=== PATIENT | female | born 1960 | race Caucasian/White ===

== ENCOUNTER 2018-01-12 13:29 | Outpatient (REF) | payer OTHER, SELFPAY ==
--- NOTE | 2018-01-12 12:10 | PAPFT_PTH ---
PATIENT: Annie Bush LOC: [facility] U#:[id number] AGE/SX: 57/F ROOM: RE01/12/[address]: YAQUELIN Casas : 1960 BED: DIS: 01/12/2018 SPEC #: [id number] RECD: 01/16/18 12:58 STATUS: TANISHA PERRY #: [id number] PAT: 01/12/18 12:[address]: Lashon Noguera DEPT: [facility] Cytology RECD BY: Sapna Snyder Tissues: 1 - CX/ENDOCX FOR PAP SMEARS Procedures: PAP THIN PREP/UVM Screening HPV DNA PROBE Comments: [id number]
== END 2018-01-12 13:30 ==
LOC: LBN 13:29
PROVIDERS: PCP Nurse Practitioner Family; Visit Provider Nurse Practitioner Family
DX: Z12.4 Encounter for screening for malignant neoplasm of cervix (principal); Z11.51 Encounter for screening for human papillomavirus (HPV)
CPT/HCPCS: 88142; 87624

== ENCOUNTER 2018-03-26 06:17 | Day surgery (SDC) | payer OTHER, SELFPAY ==
[2018-03-26 06:33] VITALS: BP 106/70; PULSE 71; RESP 16; TEMP 36.8; O2SAT 98
[2018-03-26] MEDS: Lactated Ringers 1,000 ML 80 ML IV (06:44)
--- NOTE | 2018-03-26 06:44 | W.COLOREPORT ---
Date of service: 03/26/18 Time of Service: 07:30 Colonoscopy Report Date of procedure: 03/26/18 Pre-op diagnosis general: Colon Cancer Screening Post-op diagnosis procedure note: other (Adenomatous polyps) Procedure: Colonoscopy with polypectomy by cold forceps Surgeon: Crys Jessica Anesthesia proc note operative: MAC (Dusty Turner CRNA) Estimated blood loss (mL): 3 Pathology: other (Transverse polyp and descending polyp) Complications: None Disposition: same day Indications: Mrs. Bush was seen in the office for a screening colonoscopy. Risks, benefits and complications were reviewed with her and she wished to proceed. No guarantees were given or implied. Prep: Miralax/Dulcolax Procedure Start Time: 07:27 Procedure End Time: 07:53 Retraction Time: 17 Findings: 2 polyps identified. Both were sessile. One in the transverse colon and one in the descending colon. Procedure Description: After informed consent was obtained the patient was taken to the procedure room and placed in a left decubitous position. Monitors were applied and a time out was done. The patients name, date of , procedure, allergies to medications and metal in their body was reviewed. The patient was then sedated. Once sedated and comfortable a rectal exam was done. External exam was normal. Internal exam revealed a normal sphincter tone and no palpable masses. The scope was then introduced and retroflexed. No internal hemorrhoids were identified. The scope was then advanced to the cecum without difficulty. The TI and appendiceal orifice were identified. The prep was adequate. The scope was then slowly retracted over 17 minutes back into the rectum. The scope was removed and the patient was woken up and taken back to Same day surgery in stable condition. The patient tolerated the procedure well and there were no immediate complications. Follow up: The patient should follow up in 3-5 years depending on final pathology results, unless they develop changes in bowel habits or other new gastrointestinal complaints.
--- NOTE | 2018-03-26 06:48 | PDOC.DSDIS_ITS ---
Discharge Plan Disposition Patient Disposition: HOME Condition: Good Discharge Details Reason For Visit: Screening Colonoscopy Attending Provider: Crys Jessica Primary Care Provider: Lashon Noguera Home Meds and New Rx's Prescriptions: Discontinued bisacodyl [Dulcolax (bisacodyl)] 5 mg tablet,delayed release (DR/EC) 5 mg PO ONCE Qty: 4 RF: 0 polyethylene glycol 3350 17 gram powder in packet 255 g PO DAILY Qty: 15 RF: 0 Discharge Instructions Instructions: Colonoscopy (DC) Additional Instructions: Findings: 2 polyps Follow up: 3-5 years New Medications: none Please call if you develop: fevers >101.5 Nausea or Vomiting Abdominal pain that is not transient 1. Because there will be medication in your system for the next 24 hours, you may feel a little sleepy. Your coordination will be affected. Therefore: a. Do not drive or operate dangerous equipment for 24 hours. b. Do not drink alcohol beverages for 24 hours (not even beer). c. Plan to go home and rest for the day. 2. Generally there are no restrictions on your activity after a day or so has gone by, but you may feel a bit fatigued for a few days. 3 After you arrive home you may have a light meal and return to a normal diet as you can tolerate it without feeling sick to your stomach. 4. After surgery, you may feel pain or discomfort. This should be only transient , but if it persists please contact your doctor. 5. If there are any questions regarding the findings of your procedure, please feel free to contact your doctor. 6. If you are unable to contact your doctor with a problem, contact the hospital at [phone]. 7. Continue all your regular medications unless directed otherwise. I understand the above instructions and have no questions. Signature of Patient or Responsible Adult Escort Date/Time Name of Responsible Adult Escort Signature of Nurse Date/Time Activity:: Activity as Tolerated Diet:: As Tolerated Discharge Orders Discharge Orders: Discharge Order (Routine); Ordered 03/26/18 Ordered By: Crys Jessica DS: Diagnosis Discharge Diagnosis (1) Colon polyps: Status: Acute (2) S/P colonoscopy with polypectomy: Status: Acute
--- NOTE | 2018-03-26 07:11 | W.PM.HP.N ---
Date of service: 03/26/18 Time of Service: 07:10 Assessment and Plan (1) Encounter for screening colonoscopy: Current visit: Yes Status: Acute P\\ Colonoscopy under sedation Risks, benefits and complications have been reviewed. Complications include but are not limited to bleeding, pain, perforation, missed small lesion/polyp, sore throat, aspiration and adverse reaction to the medications. Questions were entertained and answered to their satisfaction and they wished to proceed. No guarantees were given or implied. Mrs. Bush is a pleasant 57 year old female who is here to discuss her first Colonoscopy. She denies any melena, hematochezia, abdominal pain or unintentional weight loss. She has had some constipation in the last 6 months. She has treated this with increased water intake and increased fiber in her diet. She has no family history of colon cancer that she is aware of. There have been no changes in her health since she was seen in the office. Review of Systems Cardiovascular Denies chest pain, Denies chest pain at rest, Denies chest pain with activity and Denies dyspnea Respiratory Denies cough, Denies pain with cough and Denies dyspnea Gastrointestinal Reports as per [facility] Family History Mother Fibromyalgia Heart disease Hyperlipidemia Myocardial infarction Father Heart disease Lung cancer Sister Heart disease Myocardial infarction Breast cancer Paternal History Breast cancer Son No problems noted. Daughter Substance abuse Daughter No problems noted. Sister No problems noted. Brother Essential hypertension Grandfather No problems noted. Grandfather Alzheimer disease Grandmother No problems noted. Grandmother No problems noted. Medical History Premenstrual syndrome (Acute 08/29/11) Hyperlipidemia (Acute 01/03/18) Family hx-breast malignancy (Acute 10/12/12) Anovulatory bleeding (Acute 05/26/15) Hyperlipidemia Social History household members: spouse marital status: diet: other Smoking/Tobacco Use Status: Never alcohol intake: current alcohol intake frequency: a few times a month substance use type: does not use Surgical History Ligation of fallopian tube (~1999) Meds Home Medications Medication Instructions Recorded Confirmed Type bisacodyl 5 mg tablet,delayed 5 mg PO ONCE #4 tab 02/16/18 03/26/18 Rx release polyethylene glycol 3350 17 gram 255 g PO DAILY #15 each 02/16/18 03/26/18 Rx oral powder packet Allergies Allergy/AdvReac Type Severity Reaction Status Date / Time penicillin V potassium AdvReac Intermediate yeast Unverified 03/26/18 06:31 [From SylvesterAdriane Fernandez] infection Exam Const General: healthy appearing and no acute distress Resp Effort & Inspection: normal respiratory effort Auscultation: clear to auscultation bilaterally Cardio Rate: regular rate Rhythm: regular rhythm Heart Sounds: no gallops, no murmurs and no rubs Results Last Vital Signs Temp 98.2 F 03/26/18 06:33 Pulse 71 03/26/18 06:33 Resp 16 03/26/18 06:33 BP 106/70 03/26/18 06:33 Pulse Ox 98 03/26/18 06:33
--- NOTE | 2018-03-26 07:42 | BOWEL_PTH ---
PATIENT: Annie Bush LOC: [facility] U#:[id number] AGE/SX: 57/F ROOM: RE03/26/[address]: Crys Jessica MD : 1960 BED: DIS: 03/26/2018 SPEC #: [id number] RECD: 03/26/18 12:34 STATUS: TANISHA REQ #: [id number] PAT: 03/26/18 07:[address]: Crys Jessica DEPT: Surgical Specimen RECD BY: Sapna Snyder ENTERED: 03/26/18 12:35 SP TYPE: Bowel OTHR DR: YAQUELIN Casas Tissues: 1 - BIOPSY BOWEL 2 - BIOPSY BOWEL Procedures: GROSS AND MICRO LEVEL 4 Comments: [id number]
[2018-03-26 08:31] VITALS: BP 103/59; PULSE 56; RESP 16; TEMP 36.5; O2SAT 99
[2018-03-26 08:38] VITALS: BP 108/64; PULSE 50; RESP 14; TEMP 36.5; O2SAT 100
== END 2018-03-26 08:55 | disposition home or self-care (01) ==
PROVIDERS: PCP Nurse Practitioner Family; Visit Provider Surgery
PROC: 0DJD8ZZ Inspection of Lower Intestinal Tract, Via Natural or Artificial Opening Endoscopic (ICD-10-PCS; CPT 45378; principal; 2018-03-26 07:30)
DX: Z12.11 Encounter for screening for malignant neoplasm of colon (principal); D12.3 Benign neoplasm of transverse colon; D12.4 Benign neoplasm of descending colon
CPT/HCPCS: 45380; 88305; NC

== ENCOUNTER 2018-06-23 10:19 | Emergency (ER) | payer OTHER, SELFPAY ==
[2018-06-23] VITALS (19 sets, daily range): BP systolic 100–115; BP diastolic 48–66; PULSE 53–73; RESP 11–33; TEMP 36.6; O2SAT 92–100
[2018-06-23] MEDS: Normal Saline 1,000 ML 1000 ML IV (10:45)
[2018-06-23 10:54] LABS: Abs Immature Grans 0.01 k/cumm (0.0-0.09); Absolute Basophil Count 0.04 k/cumm (0.0-0.2); Absolute Eosinophil Count 0.08 k/cumm (0.0-0.7); Absolute Neutrophil Count 4.06 k/cumm (1.2-6.7); Basophils % 0.6; Eosinophils % 1.3; HGB 13.9 g/dL (12.0-15.5); Immature Grans % 0.2; Lymphocytes % 25.4; Mean Corp. HGB Concentration 33.1 g/dL (32.0-36.0); Mean Corpuscular Hemoglobin 30.9 pg (27.0-33.0); Mean Corpuscular Volume 93.3 fL (80-95); Mean Platelet Volume 10.4 fL (8.0-11.0); Monocytes % 7.9; Neutrophils % 64.6; Platelet Count 267 x1000/uL (130-400); RBC Distribution Width 12.6 % (11.7-14.6); White Blood Cell Count 6.29 k/cumm (4.4-10.8)
[2018-06-23 11:09] LABS: ALT 16 U/L (12-78); AST 17 U/L (15-37); Albumin 3.6 g/dL (3.4-5.0); Alkaline Phosphatase 58 U/L (46-116); Anion Gap 10.3 mmol/L (3-11); BUN 18 mg/dL (7-18); Bilirubin, Total 0.2 mg/dL (0.2-1.0); CO2 26.7 mmol/L (21.0-32.0); Calcium 8.5 mg/dL (8.5-10.1); Chloride 105 mmol/L (98-107); Glucose 106 mg/dL (70-100); Magnesium 1.8 mg/dL (1.8-2.4); Sodium 142 mmol/L (136-145); Total Protein 6.9 g/dL (6.4-8.2); Troponin I < 0.02 ng/mL (0.00-0.06)
[2018-06-23 11:16] LABS: ETHANOL BLOOD < 3.0 mg/dL (<3)
[2018-06-23] MEDS: Meclizine 25 MG TAB PO (11:30)
--- NOTE | 2018-06-23 11:35 | ED.GENADUL_ITS ---
Discharge Plan Disposition Patient Disposition: HOME Condition: Improving Discharge Details Chief Complaint: Nausea/Vomit/Diar Clinical Impression: Benign positional vertigo Reason For Visit: ROSANA Primary Care Provider: Lashon Noguera ED Provider: Cameron Mccann Home Meds and New Rx's Prescriptions: New meclizine 25 mg tablet 25 mg PO TID PRN (Reason: dizziness) Qty: 30 RF: 0 Discharge Instructions Instructions: Vertigo (ED), Benign Paroxysmal Positional Vertigo (ED) Additional Instructions: Please stay well-hydrated and take medication as prescribed. Please go slowly with position changes as this may worsen your symptoms. Return to emergency department for any further concerns she may have otherwise if not improving over the next week please follow-up with your primary care provider for reassessment. Stand Alone Forms: Physical Therapy Referral Referrals: Lashon Noguera NP [Primary Care Provider] - Discharge Data Discharge Date/Time-TO BE ENTERED AT DEPARTURE: 06/23/18 13:22 Medical Decision Making <Cameron Mccann NP - Last Filed: 06/24/18 08:13> Patient presenting to the emergency department with chief complaint of not feeling well, dizziness, nausea. Patient states that this started occurring this morning when she rolled over in bed she began feeling ill Hints exam positive for horizontal nystagmus to the right, test of skew nondiagnostic, head impulse test positive for return to center from right otherwise unremarkable exam. Tommy-Hallpike also positive for right gaze nystagmus. Suspect benign positional vertigo. Patient does state recent cold with feeling of congestion in her ears. Patient also reports some dizziness that did begin yesterday evening but was very mild. Labs and EKG ordered pending results patient given diazepam, IV fluids Patient reassessed and states minimal improvement with diazepam so Phenergan and meclizine were ordered Review of results show negative troponin, normal electrolytes, nondiagnostic labs. Patient reassessed and states improvement of symptoms. Patient was able to ambulate to the restroom for urinalysis and states significant improvement of overall symptoms. She does state still some positional change causing mild dizziness especially to the right. Patient ambulatory without assistance and states began feeling much better even with ambulation. UA was reviewed and no worrisome findings noted. Patient was given a referral to physical therapy for education and attempt at Ameena's maneuver otherwise patient prescribed meclizine for continued symptoms and she was encouraged to return for any further concerns or emergent change it was thoroughly discussed with her and her . After discussion of diagnosis and plan of care patient is no further needs, questions, or concerns and states clear understanding to return to the emergency department for any worsening symptoms. <Carlos Snyder DO - Last Filed: 06/23/18 11:37> ECG Data Interpretation: EKG 10: 52 Rate 57, IL 146, QTc 454, QRS 88, sinus bradycardia, no significant ST elevations or depressions, no T wave inversions. Mild flattening of T wave in lead III. Questionable Q waves in lead III. No other significant abnormalities. HPI <Cameron Mccann NP - Last Filed: 06/24/18 08:13> General Mode of arrival: EMS . Date/Time Provider Initiated Documentation: 06/23/18 10:37 . Limitations to Documentation: no limitations . Information obtained by: patient, family and RN notes reviewed . History of Present Illness 58 year old F presents to the emergency department with the chief complaint of dizziness not feeling well, described as moderate, Quality is described as other (denies pain), and is localized to the head. Patient started experiencing this hour(s) (2) and it has been constant. No relieving factors improve symptom(s), Movement worsens symptoms . Patient did receive the following treatments prior to arrival, other (zofran per ems) Related Data Home Medications Medication Instructions Recorded Confirmed meclizine 25 mg PO TID PRN #30 tab 06/23/18 Previous Rx's Medication Instructions Recorded meclizine 25 mg PO TID PRN #30 tab 06/23/18 Allergies Allergy/AdvReac Type Severity Reaction Status Date / Time penicillin V potassium AdvReac Intermediate yeast Unverified 06/23/18 10:36 [From Alan Fernandez] infection General Stated Complaint: Nausea/Vomit/Diar MARLEE: 3 Review of Systems <Cameron Mccann NP - Last Filed: 06/24/18 08:13> Constitutional Denies body ache(s), Denies chills, Denies fever(s) and Denies headache(s) Eyes Denies change in vision and Denies loss of vision ENT Reports dizziness and Denies headache(s) Cardiovascular Denies chest pain and Denies syncope Respiratory Denies cough Gastrointestinal Denies abdominal pain, Reports nausea and Reports vomiting Neurologic Reports as per HPI, Reports dizziness, Denies syncope, Denies headache(s), Denies lack of coordination, Denies focal weakness, Denies loss of vision, Denies sensory deficit and Denies paresthesias PFSH <Cameron Mccann NP - Last Filed: 06/24/18 08:13> Medical History Premenstrual syndrome (Acute 08/29/11) Hyperlipidemia (Acute 01/03/18) Family hx-breast malignancy (Acute 10/12/12) Anovulatory bleeding (Acute 05/26/15) Hyperlipidemia Surgical History Colonoscopy planned (Acute ~03/26/18) Ligation of fallopian tube (~1999) Family History Mother Fibromyalgia Heart disease Hyperlipidemia Myocardial infarction Father Heart disease Lung cancer Sister Heart disease Myocardial infarction Breast cancer Paternal History Breast cancer Son No problems noted. Daughter Substance abuse Daughter No problems noted. Sister No problems noted. Brother Essential hypertension Grandfather No problems noted. Grandfather Alzheimer disease Grandmother No problems noted. Grandmother No problems noted. Social History household members: spouse diet: other Smoking and Tabacco status: Never alcohol intake: current alcohol intake frequency: a few times a month substance use type: does not use Exam <Cameron Mccann NP - Last Filed: 06/24/18 08:13> Const General: cooperative, healthy appearing, no acute distress and well groomed Orientation: alert, awake and oriented x3 HENMT Head: normal to inspection Ears: hearing grossly normal bilaterally and TM's normal bilaterally Mouth: oral mucosae normal and moist mucous membranes Throat: posterior oropharynx normal Eyes Visual Lundberg: normal visual lundberg by confrontation Alignment and Position: alignment normal Periorbital: periorbital findings normal Eyelids: eyelids normal Sclera: sclerae normal Cornea: corneas normal Pupils: PERRL EOM: EOM intact bilaterally Neck Neck: normal visual inspection, full ROM, no lymphadenopathy and no meningeal signs Resp Effort & Inspection: normal respiratory effort and able to speak in complete sentences Auscultation: clear to auscultation bilaterally Cardio Rate: regular rate Rhythm: regular rhythm Heart Sounds: S1 normal and S2 normal Neuro General: alert, awake, oriented x3, gait normal, tone normal, moves all extremities, no meningeal signs, CN's II-XI intact bilaterally, not confused and not obtunded Cranial Nerves: CN's II-XI intact bilaterally Cognition: normal cognition Speech: speech normal Motor: muscle tone normal throughout, strength 5/5 throughout, no pronator drift, no movement abnormalities noted and no fasciculations Sensory Exam: no sensory deficits noted Coordination: [id number] test normal and ypzq-[id number] test normal Course <Cameron Mccann, WELDING MACHINE OPERATOR THERMIT - Last Filed: 06/24/18 08:13> Vital Signs Temperature 36.6 C 06/23/18 10:26 Pulse 68 06/23/18 10:26 Respiratory Rate 20 06/23/18 10:26 Blood Pressure 108/62 06/23/18 10:26 Pulse Oximetry 100 06/23/18 10:26 Temperature 36.6 C 06/23/18 10:26 Temperature Source Skin 06/23/18 10:26 Pulse 68 06/23/18 10:26 Respiratory Rate 20 06/23/18 10:26 Respiratory Effort Non-Labored 06/23/18 10:26 Blood Pressure 108/62 06/23/18 10:26 Blood Pressure Position Supine 06/23/18 10:26 Pulse Oximetry 100 06/23/18 10:26 Pain Level 0 06/23/18 10:26 Lab/Test Results Lab/Test Results: Laboratory Tests Range/Units 06/23/18 06/23/18 10:45 10:45 WBC (4.4-10.8) k/cumm 6.29 RBC (4.00-5.20) m/cumm 4.50 Hgb (12.0-15.5) g/dL 13.9 Hct (36.0-46.0) % 42.0 MCV (80-95) fL 93.3 MCH (27.0-33.0) pg 30.9 MCHC (32.0-36.0) g/dL 33.1 RDW (11.7-14.6) % 12.6 Plt Count (130-400) x1000/uL 267 MPV (8.0-11.0) fL 10.4 Immature Gran % 0.2 Neutrophils % 64.6 Lymphocytes % 25.4 Monocytes % 7.9 Eosinophils % 1.3 Basophils % 0.6 Absolute Neutrophils (1.2-6.7) k/cumm 4.06 Absolute Lymphocytes (1.2-3.4) k/cumm 1.60 Absolute Monocytes (0.11-0.7) k/cumm 0.50 Absolute Eosinophils (0.0-0.7) k/cumm 0.08 Absolute Basophils (0.0-0.2) k/cumm 0.04 Sodium (136-145) mmol/L 142 Potassium (3.5-5.1) mmol/L 4.0 Chloride (98-107) mmol/L 105 Carbon Dioxide (21.0-32.0) mmol/L 26.7 Anion Gap (3-11) mmol/L 10.3 BUN (7-18) mg/dL 18 Creatinine (0.55-1.02) mg/dL 0.80 Estimated GFR/1.73 m2 (mL/min/1.73m2) >= 60.00 Glucose (70-100) mg/dL 106 H Calcium (8.5-10.1) mg/dL 8.5 Magnesium (1.8-2.4) mg/dL 1.8 Total Bilirubin (0.2-1.0) mg/dL 0.2 AST (15-37) U/L 17 ALT (12-78) U/L 16 Alkaline Phosphatase (46-116) U/L 58 Troponin I (0.00-0.06) ng/mL < 0.02 Total Protein (6.4-8.2) g/dL 6.9 Albumin (3.4-5.0) g/dL 3.6 Ethyl Alcohol (<3) mg/dL < 3.0
[2018-06-23 12:50] LABS: Bilirubin Negative (Negative); Blood Negative (Negative); Clarity Clear; Glucose Negative (Negative); Ketones Negative (Negative); Leukocyte Esterase Negative (Negative); Nitrite Negative (Negative); Specific Gravity 1.015 (1.005-1.025); Urobilinogen 0.2 EU/dL (Up TO 0.2); pH 8.5 (5-8)
== END 2018-06-23 13:22 | disposition home or self-care (01) ==
PROVIDERS: Emergency Provider Nurse Practitioner Family; PCP Nurse Practitioner Family
DX: H81.10 Benign paroxysmal vertigo, unspecified ear (principal)
CPT/HCPCS: 36415; 80053; 93005; 96361; 96365; 96375; 99284; 80320; 81003; 83735; 84484; 85025; 93010

== ENCOUNTER 2018-07-04 20:28 | Outpatient (REF) | payer OTHER, SELFPAY | END 2018-07-04 20:48 | LOC: LBN 20:28 | PROVIDERS: PCP Nurse Practitioner Family; Visit Provider Nurse Practitioner Family | DX: N76.0 Acute vaginitis (principal) | CPT/HCPCS: 87480; 87510; 87660 ==

== ENCOUNTER 2018-08-21 00:35 | Outpatient (CLI) | payer OTHER, SELFPAY ==
--- NOTE | 2018-08-21 10:27 | DI.US_ITS ---
SYMPTOMS/DIAGNOSIS: MENORRHAGIA, N92.0, EXCESSIVE AND FREQUENT MENSTRUATION WITH REGULAR CYCLE PELVIC ULTRASOUND: Transabdominal and transvaginal examination was performed. Comparison 04/28/15. The uterus measures 7.7 cm long x 4.8 cm AP x 5.9 cm transverse. There is a 3.1 x 2.1 x 2.3 cm slightly hypoechoic mass at right fundal region of the uterus suggestive of a fibroid. This was present on prior examinations. The endometrial stripe is within normal limits at .6 cm. The right ovary measures 2.6 x 1.4 x 3.7 cm. The left ovary measures 3.2 x 1.7 x 1.2 cm. Small follicular cysts were present. There is blood flow seen to the ovaries. No evidence of torsion is seen. No evidence of free pelvic fluid or hydronephrosis is present. IMPRESSION: Uterine fibroid.
== END 2018-08-21 00:55 ==
PROVIDERS: PCP Nurse Practitioner Family; Visit Provider Nurse Practitioner Family
DX: N92.0 Excessive and frequent menstruation with regular cycle (principal); D25.9 Leiomyoma of uterus, unspecified
CPT/HCPCS: 76830; 76856

== ENCOUNTER 2018-08-24 14:43 | Outpatient (REF) | payer OTHER, SELFPAY ==
--- NOTE | 2018-08-24 13:40 | ENDOMET_PTH ---
PATIENT: Annie Bush LOC: [facility] U#:[id number] AGE/SX: 58/F ROOM: RE08/24/[address]: Shannan Oneal : 1960 BED: DIS: 08/24/2018 SPEC #: [id number] RECD: 08/24/18 17:02 STATUS: TANISHA PERRY #: [id number] PAT: 08/24/18 13:[address]: Shannan Oneal DEPT: Surgical Specimen RECD BY: Sapna Snyder ENTERED: 08/24/18 17:04 SP TYPE: Endomet OTHR DR: YAQUELIN Casas Tissues: 1 - ENDOMETRIUM BX/CURRETTE Procedures: GROSS AND MICRO LEVEL 4 Comments: [id number]
== END 2018-08-24 15:03 ==
LOC: LBN 14:43
PROVIDERS: PCP Nurse Practitioner Family; Visit Provider Obstetrics & Gynecology Gynecology
DX: N85.8 Other specified noninflammatory disorders of uterus (principal); N93.8 Other specified abnormal uterine and vaginal bleeding
CPT/HCPCS: 88305

== ENCOUNTER 2018-09-04 02:28 | Outpatient (CLI) | payer OTHER, SELFPAY ==
[2018-09-04 15:32] LABS: FREE T4 0.72 ng/dL (0.76-1.46); TSH 2.34 uIU/mL (0.358-3.74)
== END 2018-09-04 02:48 ==
PROVIDERS: PCP Nurse Practitioner Family; Visit Provider Nurse Practitioner Family
DX: R06.83 Snoring (principal)
CPT/HCPCS: 36415; 84439; 84443

== ENCOUNTER 2018-10-05 00:36 | Outpatient (CLI) | payer OTHER, SELFPAY ==
--- NOTE | 2018-10-05 14:33 | DI.US_ITS ---
SYMPTOMS/DIAGNOSIS: HEAVY BLEEDING X 3 WEEKS, N93.9 PELVIC ULTRASOUND: Comparison is made with August,. The uterus measures 7.6 x 5.7 x 6.2 cm. The endometrial stripe measures 7 mm. There is again noted to be a fundal fibroid. On the current exam, it is measured at 3.7 cm in maximal dimension. The ovaries are normal in size and appearance. Small follicles are noted bilaterally. There is no evidence of torsion. No free fluid or hydronephrosis is seen. IMPRESSION: No significant change in small fundal fibroid. No endometrial thickening or ovarian abnormality is seen.
== END 2018-10-05 00:56 ==
PROVIDERS: PCP Nurse Practitioner Family; Visit Provider Obstetrics & Gynecology
DX: N93.9 Abnormal uterine and vaginal bleeding, unspecified (principal); D25.9 Leiomyoma of uterus, unspecified
CPT/HCPCS: 76830; 76856

== ENCOUNTER 2019-09-24 10:36 | Outpatient (CLI) | payer OTHER, SELFPAY ==
[2019-09-25 17:17] LABS: COVID-19 RT-PCR UVMMC Result Negative (Negative)
== END 2019-09-24 10:56 ==
PROVIDERS: PCP Nurse Practitioner Family; Visit Provider Nurse Practitioner Family
DX: R50.9 Fever, unspecified (principal)
CPT/HCPCS: U0003

== ENCOUNTER 2019-10-16 02:42 | Outpatient (CLI) | payer OTHER, SELFPAY ==
[2019-10-16 11:51] LABS: Absolute Basophil Count 0.03 k/cumm (0.0-0.2); Absolute Eosinophil Count 0.08 k/cumm (0.0-0.7); Absolute Lymphocyte Count 1.83 k/cumm (1.2-3.4); Absolute Monocyte Count 0.39 k/cumm (0.11-0.7); Absolute Neutrophil Count 2.96 k/cumm (1.2-6.7); Basophils % 0.6; Eosinophils % 1.5; HCT 42.3 % (36.0-46.0); HGB 13.6 g/dL (12.0-15.5); Lymphocytes % 34.6; Mean Corp. HGB Concentration 32.2 g/dL (32.0-36.0); Mean Corpuscular Hemoglobin 30.3 pg (27.0-33.0); Mean Corpuscular Volume 94.2 fL (80-95); Mean Platelet Volume 9.6 fL (8.0-11.0); Monocytes % 7.4; Neutrophils % 55.9; Platelet Count 342 x1000/uL (130-400); RBC 4.49 m/cumm (4.00-5.20); RBC Distribution Width 12.8 % (11.7-14.6); White Blood Cell Count 5.29 k/cumm (4.4-10.8)
[2019-10-16 12:40] LABS: ALT 24 U/L (14-59); AST 15 U/L (15-37); Albumin 3.9 g/dL (3.4-5.0); Alkaline Phosphatase 46 U/L (46-116); Anion Gap 4.3 mmol/L (3-11); BUN 13 mg/dL (7-18); Bilirubin, Total 0.5 mg/dL (0.2-1.0); CO2 30.7 mmol/L (21.0-32.0); CREATININE 0.88 mg/dL (0.55-1.02); Calcium 9.2 mg/dL (8.5-10.1); Chloride 105 mmol/L (98-107); Glucose 92 mg/dL (74-106); Potassium 4.3 mmol/L (3.5-5.1); Sodium 140 mmol/L (136-145); TSH 1.43 uIU/mL (0.36-3.74)
[2019-10-16 13:07] LABS: ESR 1 mm/hr (0-30)
== END 2019-10-16 03:02 ==
PROVIDERS: PCP Nurse Practitioner Family; Visit Provider Family Medicine
DX: R53.83 Other fatigue (principal); R50.9 Fever, unspecified
CPT/HCPCS: 36415; 80053; 85652; 84443; 85025

== ENCOUNTER 2020-02-12 02:58 | Outpatient (CLI) | payer OTHER, SELFPAY | END 2020-02-12 03:18 | PROVIDERS: PCP Nurse Practitioner Family; Visit Provider Family Medicine | DX: R69 Illness, unspecified (principal) ==

== ENCOUNTER 2020-03-13 18:14 | Outpatient (REF) | payer OTHER, SELFPAY ==
[2020-03-13 19:24] LABS: Abs Immature Grans 0.02 10^3/uL (0.0-0.06); Absolute Basophil Count 0.06 10^3/uL (0.0-0.2); Absolute Eosinophil Count 0.11 10^3/uL (0.0-0.7); Absolute Lymphocyte Count 2.37 10^3/uL (1.2-3.4); Absolute Monocyte Count 0.47 10^3/uL (0.1-0.8); Absolute Neutrophil Count 2.92 10^3/uL (1.2-6.7); Eosinophils % 1.8; HCT 39.9 % (36.0-46.0); HGB 13.3 g/dL (11.2-15.7); Immature Grans % 0.3; Lymphocytes % 39.8; MCH 31.2 pg (27.0-33.0); MCHC 33.3 % (32.0-36.0); MCV 93.7 fL (80-95); MPV 10.7 fL (8.0-11.0); Monocytes % 7.9; Neutrophils % 49.2; Nucleated RBC 0 %; Platelet Count 326 10^3/uL (130-400); RBC 4.26 10^6/uL (3.93-5.22); RDW 12.2 % (11.7-14.6); RDW-SD 42.5 fL; WBC 5.95 10^3/uL (4.4-10.8)
[2020-03-13 19:42] LABS: Iron 91 ug/dL (50-170); Total Iron Binding Capacity 363 ug/dL (250-450); Transferrin Sat 25 % (15-50)
[2020-03-13 19:51] LABS: ALT 18 U/L (14-59); AST 13 U/L (15-37); Albumin 3.8 g/dL (3.4-5.0); Alkaline Phosphatase 44 U/L (46-116); Anion Gap 6.8 mmol/L (3-11); BUN 18 mg/dL (7-18); Bilirubin, Total 0.3 mg/dL (0.2-1.0); C-Reactive Protein 0.08 mg/dL (0.0-0.3); CO2 26.2 mmol/L (21.0-32.0); CREATININE 0.94 mg/dL (0.55-1.02); Calcium 8.9 mg/dL (8.5-10.1); Chloride 106 mmol/L (98-107); Creatine Kinase 98 U/L (26-192); Glucose 97 mg/dL (74-106); Potassium 4.1 mmol/L (3.5-5.1); Sodium 139 mmol/L (136-145); TSH 1.64 uIU/mL (0.36-3.74); Total Protein 6.9 g/dL (6.4-8.2)
[2020-03-13 20:17] LABS: ESR 4 mm/hr (0-30)
[2020-03-18 13:01] LABS: Lyme Ab w Rflx to Lyme Confirm Negative (Negative)
[2020-03-23 16:19] LABS: ANCA Interpretation Negative (Negative)
== END 2020-03-13 18:34 ==
LOC: LBN 18:14
PROVIDERS: PCP Nurse Practitioner Family; Visit Provider Emergency Medicine
DX: R53.83 Other fatigue (principal); E03.9 Hypothyroidism, unspecified; M25.50 Pain in unspecified joint
CPT/HCPCS: 80053; 82550; 85652; 86255; 83540; 83550; 84443; 85025; 86140; 86618

== ENCOUNTER 2020-04-07 10:51 | Outpatient (CLI) | payer OTHER, SELFPAY ==
[2020-04-09 17:53] LABS: Patient Race White; SARS-CoV-2 RNA Undetected (Undetected); SARS-CoV-2 Specimen Source Nasal
== END 2020-04-07 11:11 ==
PROVIDERS: PCP Nurse Practitioner Family; Visit Provider Nurse Practitioner Family
DX: R50.9 Fever, unspecified (principal); R11.0 Nausea
CPT/HCPCS: U0003

== ENCOUNTER 2020-06-29 15:16 | Outpatient (REF) | payer OTHER, SELFPAY ==
--- NOTE | 2020-06-29 13:30 | PAPFT_PTH ---
PATIENT: Annie Bush LOC: [facility] U#:[id number] AGE/SX: 60/F ROOM: RE06/29/[address]: YAQUELIN Casas : 1960 BED: DIS: 06/29/2020 SPEC #: [id number] RECD: 06/30/20 12:43 STATUS: TANISHA REAsaf #: [id number] PAT: 06/29/20 13:[address]: Lashon Noguera DEPT: [facility] Cytology RECD BY: Sapna Snyder Tissues: 1 - CX/ENDOCX FOR PAP SMEARS Procedures: PAP THIN PREP/UVM Screening HPV DNA PROBE Comments: [id number]
== END 2020-06-29 15:17 | disposition home or self-care (01) ==
LOC: LBN 15:16
PROVIDERS: PCP Nurse Practitioner Family; Visit Provider Nurse Practitioner Family
DX: Z12.4 Encounter for screening for malignant neoplasm of cervix (principal); Z11.51 Encounter for screening for human papillomavirus (HPV)
CPT/HCPCS: 88142; 87624

== ENCOUNTER 2020-07-14 01:58 | Outpatient (CLI) | payer OTHER, SELFPAY ==
--- NOTE | 2020-07-14 07:30 | DI.MAMMO_ITS ---
EXAM: MAMMO SCREENING CLINICAL HISTORY: screening,Z12.39 TECHNIQUE: Mammograms were interpreted according to the usual protocol including computer analysis w [facility] CAD system, tomosynthesis and C-view imaging. COMPARISON: FINDINGS: Breasts are heterogeneously dense. No dominant mass is identified in either breast. A group microca lcifications projected in the upper outer quadrant the right breast appears unchanged in comparison w [facility] previous examinations including July 2017 and April 2016. No new clumped microcalcification is seen. No other significant change identified. IMPRESSION: No specific evidence of malignancy at this time. Follow-up mammogram recommended in 12 months to re- evaluate probably stable calcifications of the right breast as described above. BI-RADS Category 2 - Benign Findings Breast Density - Category C - Heterogeneously dense
== END 2020-07-14 02:18 ==
PROVIDERS: PCP Nurse Practitioner Family; Visit Provider Nurse Practitioner Family
DX: Z12.31 Encounter for screening mammogram for malignant neoplasm of breast (principal)
CPT/HCPCS: 77063; 77067

== ENCOUNTER 2020-11-30 03:29 | Outpatient (CLI) | payer OTHER, SELFPAY ==
[2020-11-30 14:54] LABS: Hemoglobin A1C 5.5 % (<5.7)
[2020-11-30 15:53] LABS: Folate > 20.0 ng/mL (8.6-20.0); Vitamin B12 596 pg/mL (193-986)
[2020-11-30 15:57] LABS: Anion Gap 8.7 mmol/L (3-11); BUN 17 mg/dL (7-18); CO2 27.3 mmol/L (21.0-32.0); CREATININE 0.9 mg/dL (0.55-1.02); Calcium 8.9 mg/dL (8.5-10.1); Calculated LDL 112 mg/dL (<100); Chloride 106 mmol/L (98-107); Cholesterol 209 mg/dL (<200); Glucose 99 mg/dL (74-106); HDL Cholesterol 48 mg/dL (40-60); Potassium 4.5 mmol/L (3.5-5.1); Sodium 142 mmol/L (136-145); TSH (W/Ref FT4) 1.47 uIU/mL (0.36-3.74); Triglyceride 246 mg/dL (<150)
[2020-12-03 15:52] LABS: 1,25-Dihydroxyvitamin D 34 pg/mL (18-78)
== END 2020-11-30 03:30 | disposition home or self-care (01) ==
LOC: LBO 03:29
PROVIDERS: PCP Nurse Practitioner Family; Visit Provider Obstetrics & Gynecology Gynecology
DX: E78.5 Hyperlipidemia, unspecified (principal); M54.2 Cervicalgia; M54.12 Radiculopathy, cervical region; R79.89 Other specified abnormal findings of blood chemistry; Z79.890 Hormone replacement therapy
CPT/HCPCS: 36415; 80048; 80061; 82607; 82652; 82746; 83036; 84443

== ENCOUNTER 2020-12-25 03:27 | Outpatient (CLI) | payer OTHER, SELFPAY ==
--- NOTE | 2020-12-25 15:45 | DI.MRI_ITS ---
Exam(s) MR CERVICAL SPINE WO EXAM: MR CERVICAL SPINE WO CLINICAL HISTORY: neck pain, bilateral UE numbness paresthesias,M79.601,M79.602,R29.898, TECHNIQUE: Multiplanar multisequence MRI of the cervical spine was performed without intravenous con trast. COMPARISON: No exams were available for comparison FINDINGS: CERVICOMEDULLARY JUNCTION: Intact with no evidence of cerebellar tonsillar ectopia. No obvious abnor mality of the odontoid process. No evidence of Chiari 1 malformation. There is abnormal straighteni ng of the cervical curvature. This probably related to chronic muscle spasm. CERVICAL SPINAL CORD: There is no abnormal signal in the cervical spinal cord and no evidence of foca l cord atrophy nor focal cord swelling. OSSEOUS:There are no cervical fractures evident. No significant osseous lesions in the cervical vert ebrae. INDIVIDUAL LEVELS: C2-3: No disc herniation nor central canal stenosis. No foraminal stenosis. Only mild facet degenera tive changes at this level. C3-4: No disc herniation nor central canal stenosis. No foraminal stenosis. Mild degenerative degroot es in the facet joints. C4-5: This level exhibits significant decreased disc height and signal. Also bilateral small Luschka joint osteophytes. There is a central posterior annular bulge. This contacts the cord but without abnormal signal in the cord. There is no significant foraminal stenosis on either side at this level . Mild facet degenerative changes. C5-6: This level exhibits chronic disc space narrowing. Bilateral disc-osteophyte complexes more so on the right side. Posteriorly there is a small posterolateral right disc protrusion which extends p osteriorly 3 millimeters and is 5 millimeters wide, associated with right-sided Luschka joint osteoph yte. Minimal foraminal stenosis. No foraminal stenosis on the opposite-left side. No abnormal sign al in the cord at this level. C6-7: Advanced disc space narrowing. No disc herniation or central canal stenosis evident at this le sánchez. Small right-sided Luschka joint osteophyte-disc complex. Small left-sided similar finding. Mi ld foraminal stenosis bilaterally at this level. Mild degenerative changes in the facet joints. C7-T1: No disc herniation nor central canal stenosis. No facet arthropathy.No foraminal stenosis. IMPRESSION: 1. Multilevel disc space narrowing at C4-5, C5-6, and C6-7 levels. 2. Most significant imaging finding is a posterolateral right disc protrusion at C5-6 level as descri bed above and with mild foraminal stenosis on the right side at this level. 3. Other findings as above. There is no abnormal signal in the cervical cord and no evidence of cord swelling nor focal cord atrophy. No Chiari malformation evident. DATA REPOSITORY:
== END 2020-12-25 03:47 ==
PROVIDERS: PCP Nurse Practitioner Family; Visit Provider Nurse Practitioner Adult Health
DX: M50.222 Other cervical disc displacement at C5-C6 level (principal); M48.02 Spinal stenosis, cervical region; M79.602 Pain in left arm; R20.2 Paresthesia of skin; R53.1 Weakness; M79.601 Pain in right arm
CPT/HCPCS: 72141

== ENCOUNTER 2021-04-19 02:57 | Outpatient (CLI) | payer OTHER, SELFPAY ==
[2021-04-19 10:40] LABS: Source Nasal/Nares
[2021-04-19 17:06] LABS: COVID-19 PCR Negative (Negative)
== END 2021-04-19 02:58 | disposition home or self-care (01) ==
LOC: LBO 02:57
PROVIDERS: PCP Nurse Practitioner Family; Visit Provider Student in an Organized Health Care Education/Training Program
DX: Z20.822 Contact with and (suspected) exposure to COVID-19 (principal)
CPT/HCPCS: 87635

== ENCOUNTER 2021-04-21 11:04 | Day surgery (SDC) | payer OTHER, SELFPAY ==
--- NOTE | 2021-04-21 07:47 | W.PM.DSUDISC ---
Discharge Plan Disposition Patient Disposition: HOME Condition: Good Discharge Details Reason For Visit: Right ECTR Attending Provider: Bigg Cabral Primary Care Provider: Lashon Noguera Home Meds and New Rx's Prescriptions: New acetaminophen 500 mg capsule 1,000 mg PO Q8H PRN PRNQty: 30 RF: 0 ibuprofen 600 mg tablet 600 mg PO TID Qty: 30 RF: 0 Continued modafinil 200 mg tablet 100 mg PO DAILY PRNRF: 0 Discharge Instructions Stand Alone Forms: Marianna Boykin Tunnel Release Referrals: Bigg Cabral MD [ [facility] STAFF PHYSICIAN] - Activity:: Activity as Tolerated Remove Dressings/Wound Care:: 72 hours Shower/Bathe:: 72 hours Diet:: As Tolerated Discharge Orders Discharge Orders: Discharge Order (Routine); Ordered 04/21/21 Ordered By: Tressa Guerra DS: Diagnosis Discharge Diagnosis (1) Right carpal tunnel syndrome: Status: Acute
[2021-04-21 11:05] VITALS: BP 113/65; PULSE 90; RESP 18; TEMP 37.8; O2SAT 97
[2021-04-21] MEDS: Lactated Ringers 1,000 ML 80 ML IV (11:45)
--- NOTE | 2021-04-21 11:56 | ANES.PREOP_ITS ---
General Info Date of Service Date Performed: 04/21/21 Height: 5 ft 5 in Weight: 71.6 kg Body Mass Index (BMI): 26.2 Surgical Procedure: Operation Date: 04/21/21 12:25 Proposed Procedures Side Surgeon p Wrist ECTR Right Bigg Cabral MD Meds Allergies and Home Medications Allergies Allergy/AdvReac Type Severity Reaction Status Date / Time penicillin V potassium AdvReac Intermediate yeast Verified 04/21/21 09:25 [From SylvesterAdriane Fernandez] infection Home Medication Medication Instructions Recorded modafinil 200 mg tablet 100 mg PO DAILY PRN tab 06/29/20 acetaminophen 1,000 mg PO Q8H PRN PRN #30 cap 04/21/21 ibuprofen 600 mg PO TID #30 tab 04/21/21 Current Visit Medications: Current Medications Generic Name Dose Route Start Last Admin Trade Name Freq PRN Reason Stop Dose Admin Acetaminophen 650 mg 04/21/21 07:46 Acetaminophen 325 Mg Tab PO Q4H PRN PRN Ringer's Solution 1,000 mls @ 80 mls/hr 04/21/21 06:00 04/21/21 11:45 IV 05/20/21 23:59 80 mls/hr INFUSION URI Administration Cefazolin Sodium/Dextrose 2 gm in 50 mls @ 100 mls/hr 04/21/21 06:00 Ancef Duplex IVPB 05/20/21 23:59 PREOP URI Ondansetron HCl 4 mg/ Sodium 52 mls @ 200 mls/hr 04/21/21 07:46 Chloride IVPB Q6H PRN PRN IV Miscellaneous Supplies 1 each 04/21/21 06:00 Iv Access IV 05/20/21 23:59 DIRECTED URI Oxycodone HCl 5 mg 04/21/21 07:46 Oxycodone 5 Mg Tab PO Q3H PRN PRN Pain Sodium Chloride 0 ml 04/21/21 06:00 Normal Saline Flush 10 Ml Syr IV 05/20/21 23:59 PRN PRN Sodium Chloride 0 ml 04/21/21 06:00 Normal Saline 10 Ml Vial IJ 05/20/21 23:59 DIRECTED PRN Sterile Water 0 ml 04/21/21 06:00 Water,Injection,Sterile 10 Ml Vial IJ 05/20/21 23:59 DIRECTED PRN PFSH Active Problems Active Problems: Problem Status Onset Code Left carpal tunnel syndrome G56.02 Right carpal tunnel syndrome G56.01 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 Obstructive sleep apnea G47.33 Abnormal uterine bleeding (AUB) N93.9 Hyperlipidemia E78.5 Stress and adjustment reaction F43.29 BPPV (benign paroxysmal positional vertigo) H81.10 Medical History Active Problem List Left carpal tunnel syndrome (Acute) Right carpal tunnel syndrome (Acute) Meniere's disease of right ear (Acute) Obstructive sleep apnea (Chronic) Abnormal uterine bleeding (AUB) (Acute) Hyperlipidemia (Chronic) Stress and adjustment reaction (Acute) BPPV (benign paroxysmal positional vertigo) (Chronic) Surgical History Surgical History History of bilateral tubal ligation (~2000) S/P colonoscopy (03/26/18) Tobacco Smoking/Tobacco Use Status: Former Tobacco Use Passive smoking exposure: Yes Alcohol Alcohol Intake: current Alcohol intake frequency: a few times a month Substance Use Substance use: Never Substance use type: does not use Prental History History 3 Para 3 Hx # Term Pregnancies Multiple births Hx # Pregnancies Ectopic pregnancies AB induced Hx Number of Living Children 3 AB spontaneous Vital Signs and Lab Results Vital Signs Most Recent Vital Signs in EMR: Most Recent Vital Signs Temp Pulse Resp BP Pulse Ox 37.8 C H 90 18 113/65 97 04/21/21 11:05 04/21/21 11:05 04/21/21 11:05 04/21/21 11:05 04/21/21 11:05 Lab Results Blood Type / Crossmatch: No Data to Display Complete Blood Count: No Data to Display Complete Metabolic Panel: No Data to Display Liver Function Panel: No Data to Display Coagulation Panel: No Data to Display Cardiac Panel: 2 No Data to Display Arterial Blood Gas: No Data to Display Venous Blood Gas: No Data to Display Pancreas Panel: No Data to Display Thyroid Panel: No Data to Display Infectious Disease: Coronavirus (COVID-19)(PCR) Negative (Negative) 04/19/21 09:39 04/19/21 Coronavirus 2019 Source Nasal/Nares 04/19/21 09:39 04/19/21 Blood Cultures: No Data to Display Toxicology Panel: No Data to Display Anesthesia Assessment and Plan Anesthesia History Personal History: No History of Anesthesia Complications Family History: No Family History of Anesthesia Complications Exercise Tolerance Exercise Tolerance: Metabolic Equivalents>4 Pertinent Negatives Pertinent Negatives: No Symptoms of GERD, No Major Cardiovascular Symptoms or Complaints and No Major Pulmonary Symptoms or Complaints (Does have CPAP but does not use - recalled) Cardiac & Pulmonary Exam Cardiac Exam: Normal S1/S2 Heart Sounds Pulmonary Exam: Clear Bilateral Breath Sounds Implantable Cardiac Device Does patient have a Pacemaker or an ICD?: No Airway Exam Known Difficult Airway: No Mallampati Class: 1 Mouth Opening: Normal (> 3cm) Thyromental Distance: Greater than 3 cm Neck Range of Motion: Full ROM Neck Circumference: Normal Teeth Condition: Normal Dentition ASA Classification ASA Score: ASA 2 Emergency Case?: No NPO Status NPO Status: NPO Clears >2 hours, Solids >8 hours Anesthesia Plan Resuscitation Status: Full Code Anesthesia Technique: General Anesthesia Airway Planned: Natural Airway Monitors Used: Standard Monitors
[2021-04-21 11:59] VITALS: BMI 26.2
--- NOTE | 2021-04-21 13:07 | W.PREOPHP ---
Date of service: 04/21/21 Time of Service: 13:07 Assessment and Plan Assessment and plan (1) Right carpal tunnel syndrome: Status: Acute Assessment and plan: Annie is a 60-year-old with carpal tunnel syndrome of the right side. Please see the previous office note for complete details of her history. She has had no sick contacts. She has negative COVID-19 testing. She continues have symptoms of the right hand elects proceed with carpal tunnel release. I discussed the risks of the procedure to include, but not limited to, bleeding, infection, palmar pain, stiffness, damage to nerves, damage to vessels, damage to tendons, weakness, recurrence, and incomplete release. Given these risks, Annie desires to proceed. History of Present Illness History of Present Illness Chief Complaint: Right Carpal Tunnel Syndrome Narrative: Annie is a 60-year-old with carpal tunnel syndrome of the right side. Please see the previous office note for complete detailed history. She has elected to proceed with endoscopic carpal tunnel release. She has had no sick contacts. She has had no changes to her medical health. Review of Systems All systems reviewed & are unremarkable except as noted in HPI and below [facility] Active Problem List Left carpal tunnel syndrome (Acute) Right carpal tunnel syndrome (Acute) Meniere's disease of right ear (Acute) Obstructive sleep apnea (Chronic) Abnormal uterine bleeding (AUB) (Acute) Hyperlipidemia (Chronic) Stress and adjustment reaction (Acute) BPPV (benign paroxysmal positional vertigo) (Chronic) Surgical History History of bilateral tubal ligation (~1999) S/P colonoscopy (03/26/18) Family History Mother , at 67 of [place] Fibromyalgia Heart disease Hyperlipidemia Myocardial infarction Father , at 79 of lung cancer Heart disease Lung cancer Sister Heart disease Myocardial infarction Breast cancer Sister No problems noted. Brother Essential hypertension Lung cancer Daughter Substance abuse Daughter No problems noted. Son No problems noted. Maternal Grandfather No problems noted. Maternal Grandmother , at 70 of MVA Alzheimer disease Paternal Grandfather Alzheimer disease Paternal Grandmother , At 95 No problems noted. Social History Smoking/Tobacco Use Status: Former Tobacco Use Quit Date: 05/15/02 Smoking risk assessment performed?: Yes Alcohol Intake: current Alcohol Intake frequency: a few times a month Drug use: Never Substance use type: does not use Household members: spouse Do you feel safe at home: Yes Do you feel safe in your relationship?: Yes History History 3 Para 3 Hx # Term Pregnancies Multiple births Hx # Pregnancies Ectopic pregnancies AB induced Hx Number of Living Children 3 AB spontaneous Meds Allergies and Home Medications Allergies Allergy/AdvReac Type Severity Reaction Status Date / Time penicillin V potassium AdvReac Intermediate yeast Verified 04/21/21 09:25 [From Alan Fernandez] infection Home Medications Medication Instructions Recorded Confirmed Type modafinil 200 mg tablet 100 mg PO DAILY PRN tab 06/29/20 04/20/21 History acetaminophen 1,000 mg PO Q8H PRN PRN #30 cap 04/21/21 Rx ibuprofen 600 mg PO TID #30 tab 04/21/21 Rx Exam Resp Auscultation: clear to auscultation bilaterally Cardio Rate: regular rate Rhythm: regular rhythm Results Last Vital Signs Temp 37.8 C H 04/21/21 11:05 Pulse 90 04/21/21 11:05 Resp 18 04/21/21 11:05 BP 113/65 04/21/21 11:05 Pulse Ox 97 04/21/21 11:05
[2021-04-21] MEDS: ceFAZolin 2 GM/50 ML BAG IVPB (13:14)
[2021-04-21] MEDS: Sodium Bicarbonate 50 MEQ/50 ML VIAL (13:20)
[2021-04-21 13:40] VITALS: BP 102/47; PULSE 86; RESP 16; TEMP 36.3; O2SAT 97
--- NOTE | 2021-04-21 13:47 | W.ANESPOSTOP ---
Postoperative Evaluation Date, Time and Location Date Performed: 04/21/21 Time Performed: 13:47 Patient Location: Day Surgery Unit Vital Signs Most Recent Imported Vital Signs: Most Recent Vital Signs Temp Pulse Resp BP Pulse Ox 37.8 C H 90 18 113/65 97 04/21/21 11:05 04/21/21 11:05 04/21/21 11:05 04/21/21 11:05 04/21/21 11:05 Assessment Mental Status: Awake (Alert & Oriented to Patient Baseline) Airway and Respiratory Function: Patent airway with normal (patient baseline) respiratory exam Cardiovascular Function: Hemodynamically Stable Hydration Status: Adequately Hydrated Nausea & Vomiting: No Nausea or Vomiting Pain: Pt. Denies Any Pain Peripheral Nerve Block: Patient did not receive a nerve block
[2021-04-21 14:10] VITALS: BP 102/82; PULSE 75; RESP 16; TEMP 36.8; O2SAT 99
[2021-04-21] MEDS: Acetaminophen 325 MG TAB 650 MG PO (14:40)
--- NOTE | 2021-04-21 22:38 | ROE_ITS ---
Date of service: 04/21/21 Time of Service: 14:38 Operative Note Operative Note DATE OF PROCEDURE: 04/21/21 PRE-OP DIAGNOSIS: Right carpal tunnel syndrome POST-OP DIAGNOSIS: same PROCEDURE: Right Endoscopic Carpal Tunnel Release SURGEON: Bigg Cabral ANESTHESIA TYPE: General:No Airway Refer to Anesthesia Record ESTIMATED BLOOD LOSS: 0 PATHOLOGY: none sent TOURNIQUET TIME: 4 COMPLICATIONS: None Patient was transported to: same day Patient's condition: stable Indications: I have seen Annie in clinic for symptoms of carpal tunnel syndrome. The numbness, tingling, and pain limited function. Clinical exam findings with nerve conduction tests confirmed the diagnosis of carpal tunnel syndrome. Nonoperative measures such as bracing, time, activity modifications had been tried but disability and pain persisted. I discussed carpal tunnel release with the patient. I reviewed the risks of the procedure to include, but not limited to, bleeding, infection, pain, stiffness, incomplete release, damage to nerves or vessels, persistent numbness, recurrence. Despite these risks, the patient elected to proceed. Findings: There was tightened carpal tunnel. This was dilated and released successfully with the endoscopic with increased space within the tunnel. The an tebrachial fascia was released proximally freeing the median nerve at the wrist. Procedure Description: Annie was greeted in the preoperative holding area where the correct side was identified and marked. The consent was reviewed with the patient and signed. The history and physical was updated. All questions were answered. She was taken back to the operating room. The patient was placed into the supine position on the operating room table with the right arm on an arm board. A nonsterile tourniquet was placed high onto the arm. All bony prominences were well padded. Prophylactic antibiotics in the form of Cefazolin were administered. The right arm was then prepped with Chloraprep and draped in a standard fashion with stockinette and extremity drape. A timeout to confirm correct identity, side and site, procedure, allergies, anesthesia, and medical concerns was performed. The surgical site was marked in the volar wrist creases in line with the radial border of the fourth ray. This area was anesthetized with approximately 6cc of 1% Lidocaine. The limb was then exsanguinated with an Esmarch. The skin was incised with a 15 blade, approximately 1cm. The skin only was cut and the deeper tissue was dissected bluntly with a tenotomy scissor, avoiding passing nerve and venous structures. The fascia was penetrated and opened bluntly. A two-prong skin hook was placed under this proximal fascial edge. A series of hamate finders were used to identify and dilate the carpal tunnel. Synovial elevator was used to free synovial attachments to the underside of the transverse carpal ligament. My thumb was kept in the palm to milton the distal extent of the carpal tunnel and correctly position the hand. The Microaire endoscope was inserted without difficulty and without resistance. Excellent visualization showed horizontally running fibers of the transverse carpal ligament (TCL). The distal extent of the TCL was visualized and the end of the scope palpated with the thumb. The blade was elevated and withdrawn from distal to proximal. The TCL was split into two flaps. The endoscope was reinserted to confirm complete release and any remnant ligament was incised. The scope was withdrawn and the proximal aspect of the carpal tunnel was grossly inspected and appeared release with the median nerve visible. The antebrachial fascia at the level of the wrist was then freed from the overlying skin and then the underlying median nerve with blunt dissection. This was transected longitudinally for about 3cm proximal to the wrist incision. The wound was then irrigated with easy flow of irrigant distally and proximally. The incision was closed with a single 4-0 Nylon suture. The wound was dressed w ith Xeroform, Gauze, Kerlix and Shemar. The tourniquet was deflated with the initial dressing and held with some pressure. Blood flow returned easily to all digits with capillary refill less than 2 seconds. The patient tolerated the procedure well and was returned to the Same Day Surgery area in a stable condition suffering no known complication.
== END 2021-04-21 15:05 | disposition home or self-care (01) ==
LOC: SUR 11:04
PROVIDERS: PCP Nurse Practitioner Family; Visit Provider Student in an Organized Health Care Education/Training Program
PROC: 01N54ZZ Release Median Nerve, Percutaneous Endoscopic Approach (ICD-10-PCS; CPT 29848; principal; 2021-04-21 12:15)
DX: G56.01 Carpal tunnel syndrome, right upper limb (principal)
CPT/HCPCS: 29848; J0690; J2001

== ENCOUNTER 2021-05-03 01:50 | Outpatient (CLI) | payer OTHER, SELFPAY ==
[2021-05-03 10:32] LABS: Source Nasal/Nares
[2021-05-03 14:01] LABS: COVID-19 PCR Negative (Negative)
== END 2021-05-03 01:51 | disposition home or self-care (01) ==
LOC: LBO 01:50
PROVIDERS: PCP Nurse Practitioner Family; Visit Provider Student in an Organized Health Care Education/Training Program
DX: Z20.822 Contact with and (suspected) exposure to COVID-19 (principal); Z01.818 Encounter for other preprocedural examination
CPT/HCPCS: 87635

== ENCOUNTER 2021-05-05 09:00 | Day surgery (SDC) | payer OTHER, SELFPAY ==
[2021-05-05 09:13] VITALS: BP 107/66; PULSE 77; RESP 18; TEMP 36.3; O2SAT 96
[2021-05-05] MEDS: Lactated Ringers 1,000 ML 80 ML IV (09:38)
--- NOTE | 2021-05-05 09:45 | PDOC.DSDIS_ITS ---
Discharge Plan Disposition Patient Disposition: HOME Condition: Good Discharge Details Reason For Visit: Left carpal tunnel syndrome Attending Provider: Bigg Cabral Primary Care Provider: Lashon Noguera Home Meds and New Rx's Prescriptions: No Action modafinil 200 mg tablet 100 mg PO DAILY PRNRF: 0 acetaminophen 500 mg capsule 1,000 mg PO Q8H PRN PRNQty: 30 RF: 0 ibuprofen 600 mg tablet 600 mg PO TID Qty: 30 RF: 0 Discharge Instructions Stand Alone Forms: Marianna Boykin Tunnel Release Referrals: Bigg Cabral MD [ [facility] STAFF PHYSICIAN] - Activity:: Activity as Tolerated Remove Dressings/Wound Care:: 72 hours Shower/Bathe:: 72 hours Diet:: As Tolerated Discharge Orders Discharge Orders: Discharge Order (Routine); Ordered 05/05/21 Ordered By: Michelle Dupont DS: Diagnosis Discharge Diagnosis (1) Left carpal tunnel syndrome: Status: Acute
--- NOTE | 2021-05-05 10:06 | W.ANESPRE ---
General Info Date of Service Date Performed: 05/05/21 Height: 5 ft 5 in Weight: 72.4 kg Body Mass Index (BMI): 26.5 Surgical Procedure: Operation Date: 05/05/21 12:10 Proposed Procedures Side Surgeon p Wrist ECTR Left Bigg Cabral MD Meds Allergies and Home Medications Allergies Allergy/AdvReac Type Severity Reaction Status Date / Time penicillin V potassium AdvReac Intermediate yeast Verified 05/05/21 09:23 [From Alan Fernandez] infection Home Medication Medication Instructions Recorded modafinil 200 mg tablet 100 mg PO DAILY PRN tab 06/29/20 acetaminophen 1,000 mg PO Q8H PRN PRN #30 cap 04/21/21 ibuprofen 600 mg PO TID #30 tab 04/21/21 Current Visit Medications: Current Medications Generic Name Dose Route Start Last Admin Trade Name Freq PRN Reason Stop Dose Admin Acetaminophen 650 mg 05/05/21 09:44 Acetaminophen 325 Mg Tab PO Q4H PRN PRN Hydrocodone Bitart/Acetaminophen 0 tab 05/05/21 09:44 Hydrocodone 5/Acetaminophen 325 Tab PO Q3H PRN PRN Pain Ringer's Solution 1,000 mls @ 80 mls/hr 05/05/21 06:00 05/05/21 09:38 IV 06/03/21 23:59 80 mls/hr INFUSION URI Administration Cefazolin Sodium/Dextrose 2 gm in 50 mls @ 100 mls/hr 05/05/21 06:00 Ancef Duplex IVPB 05/05/21 16:00 PREOP URI IV Miscellaneous Supplies 1 each 05/05/21 06:00 Iv Access IV 06/03/21 23:59 DIRECTED URI Sodium Chloride 0 ml 05/05/21 06:00 Normal Saline Flush 10 Ml Syr IV 06/03/21 23:59 PRN PRN Sodium Chloride 0 ml 05/05/21 06:00 Normal Saline 10 Ml Vial IJ 06/03/21 23:59 DIRECTED PRN Sterile Water 0 ml 05/05/21 06:00 Water,Injection,Sterile 10 Ml Vial IJ 06/03/21 23:59 DIRECTED PRN PFSH Active Problems Active Problems: Problem Status Onset Code Asymmetrical sensorineural hearing loss H90.3 Left carpal tunnel syndrome G56.02 Right carpal tunnel syndrome G56.01 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 Obstructive sleep apnea G47.33 Abnormal uterine bleeding (AUB) N93.9 Hyperlipidemia E78.5 Stress and adjustment reaction 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 BPPV (benign paroxysmal positional vertigo) H81.10 Surgical History Surgical History History of bilateral tubal ligation (~2000) History of carpal tunnel surgery of right wrist (04/21/21) S/P colonoscopy (03/26/18) Tobacco Smoking/Tobacco Use Status: Former Tobacco Use Passive smoking exposure: Yes Alcohol Alcohol Intake: current Alcohol intake frequency: a few times a month Substance Use Substance use: Never Substance use type: does not use Prental History History 3 Para 3 Hx # Term Pregnancies Multiple births Hx # Pregnancies Ectopic pregnancies AB induced Hx Number of Living Children 3 AB spontaneous Vital Signs and Lab Results Vital Signs Most Recent Vital Signs in EMR: Most Recent Vital Signs Temp Pulse Resp BP Pulse Ox 36.3 C L 77 18 107/66 96 05/05/21 09:13 05/05/21 09:13 05/05/21 09:13 05/05/21 09:13 05/05/21 09:13 Lab Results Blood Type / Crossmatch: No Data to Display Complete Blood Count: No Data to Display Complete Metabolic Panel: No Data to Display Liver Function Panel: No Data to Display Coagulation Panel: No Data to Display Cardiac Panel: No Data to Display Arterial Blood Gas: No Data to Display Venous Blood Gas: No Data to Display Pancreas Panel: No Data to Display Thyroid Panel: No Data to Display Infectious Disease: Coronavirus (COVID-19)(PCR) Negative (Negative) 05/03/21 09:25 05/03/21 Coronavirus 2019 Source Nasal/Nares 05/03/21 09:25 05/03/21 Blood Cultures: No Data to Display Toxicology Panel: No Data to Display Anesthesia Assessment and Plan Anesthesia History Personal History: No History of Anesthesia Complications Family History: No Family History of Anesthesia Complications Exercise Tolerance Exercise Tolerance: Metabolic Equivalents>4 Pertinent Negatives Pertinent Negatives: No Symptoms of GERD, No Major Cardiovascular Symptoms or Complaints and No Major Pulmonary Symptoms or Complaints (MONALISA does not wear CPAP due to recall ) Cardiac & Pulmonary Exam Cardiac Exam: Normal S1/S2 Heart Sounds and Heart Murmur Present Pulmonary Exam: Clear Bilateral Breath Sounds Implantable Cardiac Device Does patient have a Pacemaker or an ICD?: No Airway Exam Known Difficult Airway: No Mallampati Class: 1 Mouth Opening: Normal (> 3cm) Thyromental Distance: Greater than 3 cm Neck Range of Motion: Full ROM Neck Circumference: Normal Teeth Condition: Normal Dentition ASA Classification ASA Score: ASA 2 Emergency Case?: No NPO Status NPO Status: NPO Clears >2 hours, Solids >8 hours Anesthesia Plan Resuscitation Status: Full Code Anesthesia Technique: General Anesthesia Airway Planned: Natural Airway Monitors Used: Standard Monitors
[2021-05-05 10:08] VITALS: BMI 26.5
[2021-05-05] MEDS: ceFAZolin 2 GM/50 ML BAG IVPB (11:04)
[2021-05-05] MEDS: Sodium Bicarbonate 50 MEQ/50 ML VIAL (11:14)
[2021-05-05 11:27] VITALS: BP 107/66; PULSE 75; RESP 17; TEMP 36.3; O2SAT 97
[2021-05-05 11:51] VITALS: BP 115/65; PULSE 61; RESP 18; TEMP 36.7; O2SAT 97
--- NOTE | 2021-05-05 12:08 | W.ANESPOSTOP ---
Postoperative Evaluation Date, Time and Location Date Performed: 05/05/21 Time Performed: 12:08 Patient Location: Day Surgery Unit Vital Signs Most Recent Imported Vital Signs: Most Recent Vital Signs Temp Pulse Resp BP Pulse Ox 36.7 C 61 18 115/65 97 05/05/21 11:51 05/05/21 11:51 05/05/21 11:51 05/05/21 11:51 05/05/21 11:51 Pain Score Most Recent Pain Score: Most Recent Pain Score Pain Level 0 05/05/21 11:51 Assessment Mental Status: Awake (Alert & Oriented to Patient Baseline) Airway and Respiratory Function: Patent airway with normal (patient baseline) respiratory exam Cardiovascular Function: Hemodynamically Stable Hydration Status: Adequately Hydrated Nausea & Vomiting: No Nausea or Vomiting Pain: Pt. Denies Any Pain Peripheral Nerve Block: Patient did not receive a nerve block
--- NOTE | 2021-05-05 14:26 | NUR.NOTE ---
Nursing Note: Pt stated to this RN that her L elbow (operative side) was aching and pulsing like her heartbeat. DEBRA Montano made aware. He spoke w/ Dr. Cabral, it was thought to be a side affect from the Epi. Dusty spoke w/ Pt, Pt was satisfied.HE
--- NOTE | 2021-05-05 21:48 | ROE_ITS ---
Date of service: 05/05/21 Time of Service: 12:09 Operative Note Operative Note DATE OF PROCEDURE: 05/05/21 PRE-OP DIAGNOSIS: Left Carpal Tunnel Syndrome POST-OP DIAGNOSIS: same PROCEDURE: Left Endoscopic Carpal Tunnel Release SURGEON: Bigg Cabral ANESTHESIA TYPE: General:No Airway Refer to Anesthesia Record ESTIMATED BLOOD LOSS: 0 PATHOLOGY: none sent TOURNIQUET TIME: 6 COMPLICATIONS: None Patient was transported to: same day Patient's condition: stable Indications: I have seen Annie in clinic for symptoms of carpal tunnel syndrome. The numbness, tingling, and pain limited function. Clinical exam findings with nerve conduction tests confirmed the diagnosis of carpal tunnel syndrome. She had success with the right side and nonoperative measures such as bracing, time, activity modifications had been tried but disability and pain persisted. I discussed carpal tunnel release with the patient. I reviewed the risks of the procedure to include, but not limited to, bleeding, infection, pain, stiffness, incomplete release, damage to nerves or vessels, persistent numbness, recurrence. Despite these risks, Annie elected to proceed. Findings: There was tightened carpal tunnel. This was dilated and released successfully with the endoscopic with increased space within the tunnel. The antebrachial fascia was released proximally freeing the median nerve at the wrist. Procedure Description: Annie was greeted in the preoperative holding area where the correct side was identified and marked. The consent was reviewed with the patient and signed. The history and physical was updated. All questions were a nswered. She was taken back to the operating room. The patient was placed into the supine position on the operating room table with the left arm on an arm board. A nonsterile tourniquet was placed high onto the arm. All bony prominences were well padded. Prophylactic antibiotics in the form of Cefazolin were administered. The left arm was then prepped with Chloraprep and draped in a standard fashion with stockinette and extremity drape. A timeout to confirm correct identity, side and site, procedure, allergies, anesthesia, and medical concerns was performed. The surgical site was marked in the volar wrist creases in line with the radial border of the fourth ray. This area was anesthetized with approximately 6cc of 1% Lidocaine. The limb was then exsanguinated with an Esmarch. The skin was incised with a 15 blade, approximately 1cm. The skin only was cut and the deeper tissue was dissected bluntly with a tenotomy scissor, avoiding passing nerve and venous structures. The fascia was penetrated and opened bluntly. A two-prong skin hook was placed under this proximal fascial edge. A series of hamate finders were used to identify and dilate the carpal tunnel. Synovial el evator was used to free synovial attachments to the underside of the transverse carpal ligament. My thumb was kept in the palm to milton the distal extent of the carpal tunnel and correctly position the hand. The Microaire endoscope was inserted without difficulty and without resistance. Excellent visualization showed horizontally running fibers of the transverse carpal ligament (TCL). The distal extent of the TCL was visualized and the end of the scope palpated with the thumb. The blade was elevated and withdrawn from distal to proximal. The TCL was split into two flaps. The endoscope was reinserted to confirm complete release and any remnant ligament was incised. The scope was withdrawn and the proximal aspect of the carpal tunnel was grossly inspected and appeared release with the median nerve visible. The antebrachial fascia at the level of the wrist was then freed from the overlying skin and then the underlying median nerve with blunt dissection. This was transected longitudinally for about 3cm proximal to the wrist incision. The wound was then irrigated with easy flow of irrigant distally and proximally. The incision was closed with a single 4-0 Nylon suture. The wound was dressed with Xeroform, Gauze, Kerlix and Shemar. The tourniquet was deflated with the initial dressing and held with some pressure. Blood flow returned easily to all digits with capillary refill less than 2 seconds. The patient tolerated the procedure well and was returned to the Same Day Surgery area in a stable condition suffering no known complication.
== END 2021-05-05 12:38 | disposition home or self-care (01) ==
PROVIDERS: PCP Nurse Practitioner Family; Visit Provider Student in an Organized Health Care Education/Training Program
PROC: 01N54ZZ Release Median Nerve, Percutaneous Endoscopic Approach (ICD-10-PCS; CPT 29848; principal; 2021-05-05 12:00)
DX: G56.02 Carpal tunnel syndrome, left upper limb (principal); G47.33 Obstructive sleep apnea (adult) (pediatric); E78.5 Hyperlipidemia, unspecified
CPT/HCPCS: 29848; J0690; J1885

== ENCOUNTER → 2022-01-12 02:08 | Outpatient (CLI) | payer OTHER, SELFPAY ==
--- NOTE | 2022-01-12 08:15 | DI.MAMMO_ITS ---
Exam(s) MAMMO SCREENING EXAM: MAMMO SCREENING CLINICAL HISTORY: screening, Z12.39. TECHNIQUE: Bilateral full field digital CC and MLO mammographic images were obtained with 3D tomosyn thesis and utilizing computer aided detection (CAD). COMPARISON: Prior mammograms were reviewed, the most recent being July 2020.. Family history. Sister diagnosed with breast cancer in her 30s. FINDINGS: Fibroglandular tissue pattern is again noted be moderately dense. There are no new spiculated masses nor malignant appearing microcalcification groups. Benign-appearing microcalcifications right breast are again noted. There is no significant architectural distortion nor skin thickening-retraction. IMPRESSION: No radiographic evidence of malignancy. Stable benign findings. BI-RADS Category 2 - Benign Findings Breast Density - Category C - Heterogeneously dense Breast density Category C or D implies that the patient has dense breast tissue. Dense breast tissue can make it harder to find cancer on a mammogram. Dense breast tissue is also associated with an incr eased risk of breast cancer. This information about the result of the mammogram report was provided to the patient to raise their awareness. Use this report when you speak with the patient about their risks for breast cancer, which includes their family history. At that time, you may recommend additional screening tests (Ultrasoun d or MRI) as these tests may add significant information. A negative radiographic report should not delay biopsy if a dominant or clinically suspicious mass is present. Up to ten percent of cancers are not identified on mammography. A negative report may reinforce clinical impression. Adenosis and dense breasts may obscure an underlying neoplasm. False positive reports average 6 to 10%. Patient will receive a letter notifying them of these results.
== END ==
PROVIDERS: PCP Nurse Practitioner Family; Visit Provider Nurse Practitioner Family
DX: Z12.31 Encounter for screening mammogram for malignant neoplasm of breast (principal)
CPT/HCPCS: 77063; 77067

== ENCOUNTER 2022-05-31 03:02 | Outpatient (CLI) | payer OTHER, SELFPAY ==
[2022-05-31 18:00] LABS: BUN 17 mg/dL (7-18); Estimated GFR 64.49 (mL/min/1.73m2); Potassium 3.7 mmol/L (3.5-5.1)
== END 2022-05-31 03:03 | disposition home or self-care (01) ==
PROVIDERS: PCP Nurse Practitioner Family; Visit Provider Physician Assistant
DX: H81.01 Meniere's disease, right ear (principal)
CPT/HCPCS: 36415; 84520; 82565; 84132

== ENCOUNTER 2022-07-05 14:16 | Outpatient (CLI) | payer OTHER, SELFPAY ==
--- NOTE | 2022-07-05 13:00 | DI.RAD_ITS ---
Exam(s) XR KNEE RT 3V AP,LAT,ALFREDO EXAM: XR KNEE RT 3V AP,LAT,ALFREDO CLINICAL HISTORY: right knee pain, M25.561. TECHNIQUE: 2D digital imaging was performed of the right knee. Three views obtained. AP, lateral an d PA tunnel views were obtained. COMPARISON: None. FINDINGS: BONES: No acute fracture is present. No bony destructive lesion is seen. There is a small enthesophyt e at the superior patella. JOINTS: The knee is normally aligned. No joint effusion is seen. There is mild narrowing of the media l joint compartment. SOFT TISSUE: Normal. IMPRESSION: 1. Mild medial compartment joint space narrowing. 2. No acute abnormality. DATA REPOSITORY: RADIATION DOSE DELIVERED:
--- NOTE | 2022-07-05 13:00 | DI.RAD_ITS ---
Exam(s) XR HIP RT COMPLETE AP PELVIS EXAM: XR HIP RT COMPLETE AP PELVIS CLINICAL HISTORY: right hip pain, M25.551. TECHNIQUE: 2D digital imaging was performed of the right hip. Four images were obtained. AP pelvis and lateral right hip views were obtained. COMPARISON: No exams were available for comparison FINDINGS: BONES: No acute fracture is present. No bony destructive lesion is seen. JOINTS: No dislocation present. SOFT TISSUE: Normal. IMPRESSION: Unremarkable radiographs of the right hip. Unremarkable radiographs of the pelvis. DATA REPOSITORY: RADIATION DOSE DELIVERED:
== END 2022-07-05 14:36 ==
LOC: DI 14:17
PROVIDERS: PCP Nurse Practitioner Family; Visit Provider Physician Assistant
DX: M25.551 Pain in right hip (principal); M25.561 Pain in right knee
CPT/HCPCS: 73562; 73502

== ENCOUNTER 2022-08-03 18:42 | Emergency (ER) | payer OTHER, SELFPAY ==
--- NOTE | 2022-08-04 20:30 | DI.RAD_ITS ---
Exam(s) XR KNEE RT 4V+ EXAM: XR KNEE RT 4V+ CLINICAL HISTORY: pain, twisting injury. TECHNIQUE: 2D digital imaging was performed of the right knee. Four views obtained. Merchant, AP, la teral and PA tunnel views were obtained. COMPARISON: CR XR KNEE RT 3V AP,LAT,ALFREDO from 07/05/2022 FINDINGS: BONES: No acute fracture is present. No bony destructive lesion is seen. There is a small enthesophyt e at the superior aspect of the patella. There is a well corticated osseous density at the head of t he fibula which appears old. JOINTS: The knee is normally aligned. No joint effusion is seen. SOFT TISSUE: Normal. IMPRESSION: No acute abnormality. DATA REPOSITORY: RADIATION DOSE DELIVERED:
== END 2022-08-04 00:26 ==
PROVIDERS: Emergency Provider Student in an Organized Health Care Education/Training Program; PCP Nurse Practitioner Family
DX: M79.604 Pain in right leg (principal)
CPT/HCPCS: 99283; 73564

== ENCOUNTER 2022-11-18 01:13 | Outpatient (CLI) | payer OTHER, SELFPAY ==
--- NOTE | 2022-11-18 09:00 | DI.MRI_ITS ---
Exam(s) MR LOWER JOINT RT WO EXAM: MR LOWER JOINT RT WO CLINICAL HISTORY: PAIN, POSTERIOR RT KNEE PAIN, INTERNAL DERANGEMENT, M25.561, M23.91. TECHNIQUE: Multiplanar multisequence MRI was performed. COMPARISON: CR,XR XR KNEE RT 4V+ from 08/03/2022 FINDINGS: BONES: Minimal high signal in the medial femoral condyle medial tibial plateau could represent mild c ontusions JOINTS: A small joint effusion is present. Articular cartilage: Patellofemoral joint: Articular cartilage is unremarkable. Medial femoral tibial joint: Articular cartilage is unremarkable. Lateral femoral tibial joint: Articular cartilage is unremarkable. TENDONS: Extensor mechanism: Unremarkable. Medial retinaculum: Unremarkable. Lateral retinaculum: Unremarkable. Popliteus: Unremarkable. MUSCLES: Unremarkable. MENISCI: The medial meniscus shows abnormal irregular signal in the posterior horn and body. There i s some oblique signal extending to the superior taking a surface the body as well as a radially orien bahman tear seen in the posterior horn. The lateral meniscus is unremarkable. SOFT TISSUES: Multiloculated popliteal cyst, 7 cm in length. LIGAMENTS: Anterior Cruciate: Unremarkable. Posterior Cruciate: Unremarkable. Medial Collateral:Surrounding fluid. No visible tear. Lateral Collateral: Unremarkable. OTHER: IMPRESSION: Complex tear of the posterior horn and body of the medial meniscus. Multiloculated Paige's cyst. DATA REPOSITORY:
== END 2022-11-18 01:33 ==
LOC: DI 01:13
PROVIDERS: PCP Nurse Practitioner Family; Visit Provider Student in an Organized Health Care Education/Training Program
DX: M25.561 Pain in right knee; S83.231A Complex tear of medial meniscus, current injury, right knee, initial encounter; M71.21 Synovial cyst of popliteal space [Baker], right knee
CPT/HCPCS: 73721

== ENCOUNTER 2023-02-08 11:45 | Day surgery (SDC) | payer OTHER, SELFPAY ==
[2023-02-08] VITALS (10 sets, daily range): BP systolic 102–144; BP diastolic 61–74; PULSE 49–79; RESP 13–20; TEMP 36.3–36.9; O2SAT 96–100; BMI 24.1
--- NOTE | 2023-02-08 10:10 | W.ANESPRE ---
General Info Date of Service Date Performed: 02/08/23 Height: 5 ft 5 in Weight: 65.771 kg Body Mass Index (BMI): 24.1 Surgical Procedure: Operation Date: 02/08/23 14:55 Proposed Procedure Side Surgeon p Knee Arthroscopy, Partial Medial Menisectomy Right Bigg Cabral MD Meds Allergies and Home Medications Allergies Allergy/AdvReac Type Severity Reaction Status Date / Time penicillin V potassium AdvReac Intermediate yeast Verified 02/07/23 11:03 [From Alan Fernandez] infection Home Medication Medication Instructions Recorded bupropion HCl 300 mg 24 hr tablet, 300 mg PO DAILY #90 tabs 08/03/22 extended release bupropion HCl 150 mg 24 hr tablet, 150 mg PO DAILY #90 tabs 09/21/22 extended release alprazolam 0.5 mg tablet 0.5 mg PO ONCE PRN Claustrophobia 10/31/22 #2 tabs ondansetron 4 mg disintegrating 4 mg PO Q8H PRN nausea and 11/24/22 tablet vomiting #30 tabs acetaminophen 500 mg tablet 1,000 mg PO TID #90 tabs 02/08/23 hydrocodone 5 mg-acetaminophen 325 1 tab PO Q6H PRN pain #10 tabs 02/08/23 mg tablet ibuprofen 600 mg tablet 600 mg PO TID PRN pain #90 tabs 02/08/23 Current Visit Medications: Current Medications Generic Name Dose Route Start Last Admin Trade Name Freq PRN Reason Stop Dose Admin Acetaminophen 1,000 mg 02/08/23 06:00 Acetaminophen 500 Mg Tab PO 02/08/23 18:00 PREOP URI Celecoxib 400 mg 02/08/23 06:00 Celecoxib 200 Mg Cap PO 02/08/23 18:00 PREOP [facility] Ringer's Solution 1,000 mls @ 80 mls/hr 02/08/23 06:00 IV 03/09/23 23:59 INFUSION URI Cefazolin Sodium/Dextrose 2 gm in 50 mls @ 100 mls/hr 02/08/23 06:00 Ancef Duplex IVPB 02/08/23 16:00 PREOP [facility] IV Miscellaneous Supplies 1 each 02/08/23 06:00 Iv Access IV 03/09/23 23:59 DIRECTED URI Sodium Chloride 0 ml 02/08/23 06:00 Normal Saline Flush 10 Ml Syr IV 03/09/23 23:59 PRN PRN Sodium Chloride 0 ml 02/08/23 06:00 Normal Saline 10 Ml Vial IJ 03/09/23 23:59 DIRECTED PRN Sterile Water 0 ml 02/08/23 06:00 Water,Injection,Sterile 10 Ml Vial IJ 03/09/23 23:59 DIRECTED PRN PFSH Active Problems Active Problems: Problem Status Onset Code Complex tear of medial meniscus of right knee S83.231A Trochanteric bursitis of both hips M70.61, M70.62 Posterior right knee pain M25.561 Chronic right hip pain M25.551, G89.29 Insomnia disorder, with other sleep disorder, recurrent G47.00, G47.8 Obstructive sleep apnea G47.33 Hyperlipidemia E78.5 Depressive disorder F32.A Generalized anxiety disorder F41.1 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 A.m. BX benign. Ultrasound unremarkable. No response to norethindrone. 09/2018 OCPs initiated Surgical History Surgical History History of bilateral tubal ligation (~2000) History of carpal tunnel surgery of right wrist (04/21/21) S/P colonoscopy (03/26/18) Tobacco Smoking/Tobacco Use Status: Former Tobacco Use Passive smoking exposure: Yes Second hand exposure: Yes Alcohol Alcohol Intake: current Alcohol intake frequency: a few times a week Alcohol type: beer Substance Use Substance use: Never Substance use type: does not use Prental History History 3 Para 3 Hx # Term Pregnancies Multiple births Hx # Pregnancies Ectopic pregnancies AB induced Hx Number of Living Children 3 AB spontaneous Vital Signs and Lab Results Vital Signs Most Recent Vital Signs in EMR: Temp Pulse Resp BP Pulse Ox 36.9 C 79 20 133/74 96 02/08/23 12:09 02/08/23 12:09 02/08/23 12:09 02/08/23 12:09 02/08/23 12:09 Lab Results Blood Type / Crossmatch: No Data to Display Complete Blood Count: No Data to Display Complete Metabolic Panel: No Data to Display Liver Function Panel: No Data to Display Coagulation Panel: No Data to Display Cardiac Panel: No Data to Display Arterial Blood Gas: No Data to Display Venous Blood Gas: No Data to Display Pancreas Panel: No Data to Display Thyroid Panel: No Data to Display Infectious Disease: No Data to Display Blood Cultures: No Data to Display Toxicology Panel: No Data to Display Anesthesia Assessment and Plan Anesthesia History Personal History: No History of Anesthesia Complications Family History: No Family History of Anesthesia Complications Exercise Tolerance Exercise Tolerance: Metabolic Equivalents>4 Cardiac & Pulmonary Exam Cardiac Exam: Normal S1/S2 Heart Sounds Pulmonary Exam: Clear Bilateral Breath Sounds Implantable Cardiac Device Does patient have a Pacemaker or an ICD?: No Airway Exam Known Difficult Airway: No Mallampati Class: 1 Mouth Opening: Normal (> 3cm) Thyromental Distance: Greater than 3 cm Neck Range of Motion: Full ROM Neck Circumference: Normal Teeth Condition: Normal Dentition ASA Classification ASA Score: ASA 2 Emergency Case?: No NPO Status NPO Status: NPO Clears >2 hours, Solids >8 hours Anesthesia Plan Resuscitation Status: Full Code Anesthesia Technique: General Anesthesia Airway Planned: LMA Monitors Used: Standard Monitors Preoperative Comments:: 62 yo female for knee scope. Sig PMHx: MONALISA/CPAP, menieres, anxiety/depression, former smoker, occ EtOH. Previous Anes: - ECTR x 2, prop/ketamine, natural airway, no issues. - colo, prop, natural airway, no issues.
--- NOTE | 2023-02-08 11:34 | W.PM.DSUDISC ---
Date of service: 02/08/23 Time of Service: 11:41 Discharge Plan Disposition Patient Disposition: Home Condition: Good Discharge Details Reason For Visit: R knee arthroscopy Attending Provider: Bigg Cabral Primary Care Provider: Lashon Noguera Home Meds and New Rx's Prescriptions: New acetaminophen 500 mg tablet 1,000 mg PO TID Qty: 90 0RF hydrocodone-acetaminophen 5-325 mg tablet 1 tab PO Q6H PRN (Reason: pain) Qty: 10 0RF ibuprofen 600 mg tablet 600 mg PO TID PRN (Reason: pain) Qty: 90 0RF Continued alprazolam 0.5 mg tablet 0.5 mg PO ONCE PRN (Reason: Claustrophobia) Qty: 2 0RF Rx Instructions: Take 1 60 minutes prior to MRI. May take an additional 1 if still anxious 30 mins prior to MRI. bupropion HCl 300 mg tablet extended release 24 hr 300 mg PO DAILY Qty: 90 3RF Rx Instructions: Take 1 tablet daily in addition to the 150mg tablet bupropion HCl 150 mg tablet extended release 24 hr 150 mg PO DAILY Qty: 90 3RF Rx Instructions: Take 1 tablet daily in addition to the 300mg tablet ondansetron 4 mg tablet,disintegrating 4 mg PO Q8H PRN (Reason: nausea and vomiting) Qty: 30 1RF Discontinued acetaminophen 500 mg capsule 1,000 mg PO Q8H PRN PRNQty: 30 0RF Discharge Instructions Stand Alone Forms: [facility] Knee Arthroscopy Equipment/Supplies: Partial Weight Bearing Crutches Activity:: Activity as Tolerated Remove Dressings/Wound Care:: 72 hours Shower/Bathe:: 72 hours Diet:: As Tolerated Discharge Orders Discharge Orders: Discharge Order (Routine); Ordered 02/08/23 Ordered By: Zen Acevedo DS: Diagnosis Discharge Diagnosis (1) Complex tear of medial meniscus of right knee: Status: Acute
[2023-02-08] MEDS: Lactated Ringers 1,000 ML 80 ML IV (12:16)
[2023-02-08] MEDS: ceFAZolin 2 GM/50 ML BAG IVPB (12:32)
[2023-02-08] MEDS: Bupivacaine 0.5% Pres-Free 30 ML VIAL (13:15)
[2023-02-08] MEDS: EPINEPHrine 30 MG/30 ML VIAL (13:15)
[2023-02-08] MEDS: ACETAMINOPHEN 1,000 MG/100 ML BTL 400 MG IVPB (13:32)
--- NOTE | 2023-02-08 13:37 | W.PM.OP ---
Date of service: 02/08/23 Time of Service: 13:20 Operative Note Operative Note DATE OF PROCEDURE: 02/08/23 PRE-OP DIAGNOSIS: Right Knee Medial Meniscus Tear POST-OP DIAGNOSIS: same PROCEDURE: Arthroscopic Right Knee Partial Medial Menisectomy SURGEON: Bigg Cabral ANESTHESIA TYPE: General LMA/ETT Refer to Anesthesia Record ESTIMATED BLOOD LOSS: 0 PATHOLOGY: none sent COMPLICATIONS: None Patient was transported to: PACU Patient's condition: stable Indications: I have seen Annie in clinic for symptoms of a meniscus tear. This was confirmed based on MRI and exam findings. Nonoperative measures were exhausted but disability and pain persisted. I discussed knee arthroscopy with meniscal intervention with the patient. I reviewed the risks of the procedure to include, but not limited to, bleeding, infection, pain, stiffness, damage to nerves or vessels, recurrence, blood clot. Despite these risks, the patient elected to proceed. Findings: A diagnostic arthroscopy was performed with the following findings: Suprapatellar Pouch: Moderate inflammatory changes, No loose bodies Medial Compartment: Complex medial meniscal tear, Intact meniscal root, Grade II chondromalcia of the tibia with some focal Grade III posteriorly - minimal of femur, No loose bodies Notch: ACL and PCL were intact Lateral Compartment: No meniscal tear, Intact meniscal root, Grade II chondromalacia throughout the tibia with fissuring, No loose bodies Patellofemoral Compartment: Grade I chondromalacia, No apparent patellar maltracking Procedure Description: Annie was greeted in the preoperative holding area where the correct side was identified and marked. The consent was reviewed with the patient and signed. The history and physical was updated. All questions were answered. She was taken back to the operating room. The patient was placed into the supine position on the operating room table. A nonsterile tourniquet was placed high onto the leg but not used. All bony prominences were well padded. Prophylactic antibiotics in the form of Cefazolin were administered. The right leg was then prepped with Chloraprep and draped in a standard fashion with stockinette and extremity drape. A timeout to confirm correct identity, side and site, procedure, allergies, anesthesia, and medical concerns was performed. The leg was placed into a pneumatic leg garcia, [id number]. A standard lateral portal was made at the lateral border of the patella tendon in line with the inferior pole of the patella, soft spot. The skin and deep tissue was incised sharply and the blunt trochar was inserted atraumatically. A diagnostic arthroscopy was performed and the findings are listed above. The suprapatellar pouch had moderate inflammatory synovium. The patellofemoral articulation showed Grade I chondromalacia as well as good tracking. The lateral gutter had no loose bodies and the medial gutter had no loose bodies. The knee was brought into some valgus stress in extension to open the medial compartment. A medial portal was made, localized by a spinal needle. The portal was created with an #11 blade through skin and capsule under direct visualization avoiding any meniscal injury. A probe was then inserted into the medial compartment. The medial compartment was fully inspected. The chondral surface of the tibia showed Grade II chondromalacia with some focal area of Grade III posteriorly and the surface of the femur showed no significant chondromalacia. The medial meniscus had a complex meniscal tear with a radial component at the horn and both vertical and horizontal tear planes through the posterior meniscus. After evaluation, the meniscus was debrided down to a stable base using a series of biters and arthroscopic judy. It was probed afterwards to confirm that the tear had been removed and the meniscus was stable. Cartilage surfaces were debrided of any flaps, leaving any intact fibers. The notch was then inspected which showed an intact ACL and an intact PCL. The leg was then brought into a figure of 4 position. The lateral compartment was fully inspected with the arthroscope and a probe. The chondral surface of the lateral femur showed no significant chondromalacia. The chondral surface of the lateral tibia showed Grade II chondromalacia with some fissuring throughout. The lateral meniscus had no meniscal tear. The arthroscope was brought back into the suprapatellar pouch and the leg was in full extension. The knee was thoroughly irrigated with the arthroscopic fluid on high flow and pressure. Inflow was stopped and excess fluid was removed. The wounds were closed with 4-0 Nylon. They were dressed with Xeroform, 4x4 gauze, ABD pad, Kerlix and an MELI wrap. A cryo-cuff was applied. The patient tolerated the procedure well and was returned to the Same Day Surgery area in a stable condition suffering no known complication.
[2023-02-08] MEDS: fentaNYL 100 MCG/2 ML VIAL IVP ×2 (13:52→14:24)
--- NOTE | 2023-02-08 15:45 | W.ANESPOSTOP ---
Postoperative Evaluation Date, Time and Location Date Performed: 02/08/23 Time Performed: 15:46 Patient Location: Day Surgery Unit Vital Signs Most Recent Imported Vital Signs: Most Recent Vital Signs Temp Pulse Resp BP Pulse Ox 36.6 C 57 L 16 118/70 99 02/08/23 15:14 02/08/23 15:14 02/08/23 15:14 02/08/23 15:14 02/08/23 15:14 Pain Score Most Recent Pain Score: Most Recent Pain Score Pain Level 2 02/08/23 15:14 Assessment Mental Status: Awake (Alert & Oriented to Patient Baseline) Airway and Respiratory Function: Patent airway with normal (patient baseline) respiratory exam Cardiovascular Function: Hemodynamically Stable Hydration Status: Adequately Hydrated Nausea & Vomiting: No Nausea or Vomiting Pain: Pain is tolerable per patient Peripheral Nerve Block: Patient did not receive a nerve block
== END 2023-02-08 15:56 | disposition home or self-care (01) ==
PROVIDERS: PCP Nurse Practitioner Family; Visit Provider Student in an Organized Health Care Education/Training Program
PROC: (CPT 29870; principal; 2023-02-08 14:45)
DX: M94.261 Chondromalacia, right knee (principal); G47.33 Obstructive sleep apnea (adult) (pediatric); F41.1 Generalized anxiety disorder; E78.5 Hyperlipidemia, unspecified; S83.231A Complex tear of medial meniscus, current injury, right knee, initial encounter; X58.XXXA Exposure to other specified factors, initial encounter
CPT/HCPCS: 29881; J0131; J0690; J1100; J1885; J2001; J2250; J2405; J3010

== ENCOUNTER → 2023-02-22 00:41 | Outpatient (CLI) | payer OTHER, SELFPAY ==
[2023-02-22 13:47] LABS: CREATININE 0.8 mg/dL (0.55-1.02); Estimated GFR 83.78 (mL/min/1.73m2)
[2023-02-22] MEDS: Gadoterate meglumine 20 ML SYRINGE IVP (13:56)
[2023-02-22] MEDS: Normal Saline Flush 10 ML SYR IVP (13:57)
--- NOTE | 2023-02-22 14:20 | DI.MRI_ITS ---
Exam(s) MR IAC BRAIN WO/W EXAM: MR IAC BRAIN WO/W CLINICAL HISTORY: ? acoustic neuroma,ASYMMETRICAL HEARING LOSS,MENIERES DISEASE RT EAR,BPPV. TECHNIQUE: Multiplanar multisequence MRI of the brain and internal auditory canals was performed. CONTRAST MATERIAL: IV Contrast: 13 mL of Magnevist contrast administered. COMPARISON: No exams were available for comparison FINDINGS: VENTRICLES AND EXTRA AXIAL SPACES: Normal in size and morphology for the patient's age. HEMORRHAGE: None. CEREBRAL PARENCHYMA: No focus of restricted diffusion to suggest acute infarct. No space-occupying le curtis identified. MIDLINE SHIFT: None. BRAINSTEM/CEREBELLUM: Normal. CALVARIUM: Normal. ENHANCEMENT: No suspicious enhancement identified. VISUALIZED PARANASAL SINUSES/MASTOIDS: Clear. ORBITS: Unremarkable. IAC/CP ANGLE: The cochlea and semicircular canals appear normal bilaterally. The internal auditory c anals are within normal limits. The cerebellar pontine angles are unremarkable. No enhancing lesions are seen. Visualized portions of the cranial nerves appear within normal limits. OTHER FINDINGS: None. IMPRESSION: Unremarkable MRI of the brain and internal auditory canals. No evidence of acoustic neuroma. DATA REPOSITORY:
== END ==
PROVIDERS: PCP Nurse Practitioner Family; Visit Provider Nurse Practitioner Family
DX: H81.01 Meniere's disease, right ear (principal); H90.3 Sensorineural hearing loss, bilateral
CPT/HCPCS: 70553; 82565

== ENCOUNTER 2023-03-30 15:23 | Outpatient (CLI) | payer OTHER, SELFPAY ==
--- NOTE | 2023-03-30 13:45 | DI.RAD_ITS ---
Exam(s) XR KNEE LT 3V AP,LAT,ALFREDO EXAM: XR KNEE LT 3V AP,LAT,ALFREDO CLINICAL HISTORY: L knee pain. TECHNIQUE: 2D digital imaging was performed. Three views. COMPARISON: No exams were available for comparison FINDINGS: BONES: No acute fracture is present. No bony destructive lesion is seen. These a fight at quadriceps insertion on patella. JOINTS: The knee is normally aligned. No joint effusion is seen. No joint space narrowing. SOFT TISSUE: Small triangular nonmetallic foreign body seen projecting in the infrapatellar fat on th e lateral view and over the lateral femoral condyle on the AP views. IMPRESSION: Small triangular foreign body in the anterior soft tissues. DATA REPOSITORY: RADIATION DOSE DELIVERED:
== END 2023-03-30 15:24 | disposition home or self-care (01) ==
LOC: DIORS 15:23
PROVIDERS: PCP Nurse Practitioner Family; Visit Provider Physician Assistant
DX: M79.5 Residual foreign body in soft tissue (principal)
CPT/HCPCS: 73562

== ENCOUNTER 2023-04-14 01:36 | Outpatient (CLI) | payer OTHER, SELFPAY ==
[2023-04-14 17:02] LABS: Potassium 4.1 mmol/L (3.5-5.1)
== END 2023-04-14 01:37 | disposition home or self-care (01) ==
LOC: LBO 01:37
PROVIDERS: Otolaryngology; PCP Nurse Practitioner Family; Visit Provider Nurse Practitioner Family
DX: R42 Dizziness and giddiness (principal)
CPT/HCPCS: 36415; 84132

== ENCOUNTER → 2023-07-18 02:36 | Outpatient (CLI) | payer OTHER, SELFPAY ==
--- NOTE | 2023-07-18 08:19 | DI.MAMMO_ITS ---
Exam(s) MAMMO SCREENING EXAM: MAMMO SCREENING CLINICAL HISTORY: screening,Z12.39 TECHNIQUE: Mammograms were interpreted according to the usual protocol including computer analysis w [employer] CAD system, tomosynthesis and C-view imaging. COMPARISON: 2013 through 2021 FINDINGS: The breasts are composed of heterogeneously dense fibroglandular densities, Breast Density category C . No suspicious masses or suspicious microcalcifications are seen. No skin thickening or abnormal axillary lymph nodes are seen. There has been no significant change from prior exams. IMPRESSION: BI-RADS Category 1, Negative mammogram. Yearly screening mammography is recommended. Breast Density Category C, heterogeneously Dense. The mammogram demonstrates the patient's breast tissue is dense. Dense breast tissue is very common a nd is not abnormal but dense breast tissue can make it harder to find cancer on a mammogram. Also, de nse breast tissue may increase breast cancer risk. This information about the result of the mammogram report was provided to the patient to raise their awareness. Use this report when you speak with the patient about their risks for breast cancer, which includes their family history. At that time, you may recommend additional screening tests (Ultrasound or MRI) as they might be useful based on their r isk. A negative radiographic report should not delay biopsy if a dominant or clinically suspicious mass is present. Up to ten percent of cancers are not identified on mammography. A negative report may reinforce clinical impression. Adenosis and dense breasts may obscure an underlying neoplasm. False positive reports average 6 to 10%.
== END ==
PROVIDERS: PCP Nurse Practitioner Family; Visit Provider Nurse Practitioner Family
DX: Z12.31 Encounter for screening mammogram for malignant neoplasm of breast (principal)
CPT/HCPCS: 77063; 77067

== ENCOUNTER 2023-11-24 21:19 | Outpatient (REF) | payer OTHER, SELFPAY ==
[2023-11-24 22:36] LABS: Bilirubin Negative (Negative); Blood Moderate (Negative); Clarity Clear (Clear); Glucose Negative (Negative); Ketones Negative (Negative); Leukocyte Esterase Trace (Negative); Nitrite Positive (Negative); Specific Gravity >= 1.030 (1.005-1.025); Urobilinogen 0.2 mg/dL (Up to 0.2); pH 5.5 (5-8)
[2023-11-24 22:55] LABS: Bacteria Few HPF (Negative); C & S Indicated? Yes; Casts Negative LPF (Negative); Crystals Negative HPF (Negative); Epithelial Cells Few HPF (Negative); Mucus Negative (Negative)
== END 2023-11-24 21:20 | disposition home or self-care (01) ==
LOC: LBN 21:19
PROVIDERS: PCP Nurse Practitioner Family; Visit Provider Physician Assistant
DX: R39.89 Other symptoms and signs involving the genitourinary system (principal)
CPT/HCPCS: 87077; 81003; 81015; 87086; 87186

== ENCOUNTER 2023-12-11 06:56 | Day surgery (SDC) | payer OTHER, SELFPAY ==
--- NOTE | 2023-12-10 07:39 | W.PM.DSUDISC ---
Date of service: 12/11/23 Time of Service: 08:59 Discharge Plan Disposition Patient Disposition: Home Condition: Good Discharge Details Reason For Visit: screening colonocsopy Attending Provider: David Arredondo Primary Care Provider: Lashon Noguera Home Meds and New Rx's Prescriptions: Continued bupropion HCl 300 mg tablet extended release 24 hr 300 mg PO DAILY Qty: 90 3RF Rx Instructions: Take 1 tablet daily in addition to the 150mg tablet bupropion HCl 150 mg tablet extended release 24 hr 150 mg PO DAILY Qty: 90 3RF Rx Instructions: Take 1 tablet daily in addition to the 300mg tablet cholecalciferol (vitamin D3) 125 mcg (5,000 unit) capsule 125 mcg PO DAILY ondansetron 4 mg tablet,disintegrating 4 mg PO Q8H PRN (Reason: nausea and vomiting) Qty: 30 1RF triamterene-hydrochlorothiazid 37.5-25 mg tablet 0.5 tab PO QAM Qty: 30 3RF ibuprofen 600 mg tablet 600 mg PO TID PRN (Reason: pain) Qty: 90 0RF Discontinued polyethylene glycol 3350 17 gram/dose powder 238 g PO ONCE Qty: 238 0RF Rx Instructions: Colonoscopy Bowel Prep- Per Instructions bisacodyl [Dulcolax (bisacodyl)] 5 mg tablet,delayed release (DR/EC) 5 mg PO ONCE Qty: 4 0RF Discharge Instructions Instructions: Colon polyps Additional Instructions: Annie, we are able to complete your colonoscopy today without much difficulty. I did find and removed 2 polyps today. Similar to your previous experience, these will be sent off for testing. Once we know the nature of these polyps, the office will be in touch with recommendations for the timing of your next colonoscopy. If you need anything, or have any questions in the meantime, please do not hesitate to ask. 1. If tolerated, consume a soft, low fiber diet for 1-2 days. 2[address] Do not drive, drink alcohol, operate machinery, make critical decisions, or do activities that require coordination or balance for 24 hours. 3. Because air was put into your colon during the procedure, expelling air from your rectum (passing gas or farting) is normal. 4. You may not have a bowel movement for 1-3 days because of the colonoscopy prep. This is normal. 5. Go directly to the emergency room if you notice any of the following: Develop chills (warm to touch), or if you have a thermometer and your temperature is above 101 Difficulty breathing or difficultly swallowing Persistent vomiting Severe abdominal pain, other than gas cramps Severe chest pain Black, tarry stools Any bleeding ? exceeding one tablespoon 6. Call your physician if the site where your intravenous was started becomes red, swollen, painful, and warm to touch. 7. Your physician has reviewed your pre-procedure medications. Please continue to take those medications as previously ordered. You will be given specific information/education regarding any changes to your medications before leaving. Activity:: Activity as Tolerated Diet:: As Tolerated Discharge Orders Discharge Orders: Discharge Order (Routine); Ordered 12/10/23 Ordered By: David Arredondo DS: Diagnosis Discharge Diagnosis (1) Encounter for screening colonoscopy: Status: Acute Asessment and Plan: Follow-up on polypectomy results
--- NOTE | 2023-12-10 07:40 | W.COLOREPORT ---
Date of service: 12/11/23 Time of Service: 08:59 Colonoscopy Report Date of procedure: 12/11/23 Pre-op diagnosis general: screening colonoscopy Post-op diagnosis procedure note: other (Colon polyps) Procedure: colonoscopy with polypectomy Surgeon: David Arredondo Anesthesia Type: General:No Airway Estimated blood loss (mL): 5 Pathology: other (0.25 cm cecal polyp, 0.5 cm polyp at 65 cm) Complications: None Disposition: same day Indications: Annie is 63 years old. She has a history of adenomatous polyps and she needs her next screening colonoscopy Prep: Miralax/Dulcolax Procedure Start Time: : Procedure End Time: 08:49 Retraction Time: 12 Findings: 0.25 cm cecal polyp, 0.5 cm polyp at 65 cm Procedure Description: After the induction of anesthesia, and with the patient in left lateral decubitus position, I began by performing an external anorectal exam.? Perineum and skin were normal, as was the anal verge.? There was no evidence of external hemorrhoids.? Next, I performed a digital rectal exam.? I did not appreciate any abnormal findings.? Next, I advanced a colonoscope into the rectal vault.? I performed retroflexion.? This appeared normal.? Using insufflation, I then advanced the colonoscope beyond the rectal folds and into the sigmoid colon before advancing towards the cecum.? The scope was noted to be in the cecum by identification of the ileocecal valve and appendiceal orifice.? Just a few centimeters away from the appendiceal orifice was a small polyp. It was less than 0.25 cm, and was mostly pedunculated. This was removed with cold forcep polypectomy without any significant bleeding. I then began withdrawing the colonoscope using repeated irrigation as necessary for full evaluation of the colonic mucosa. Around 65 cm from the anal verge I identified a 0.5 cm polyp. ?It appeared flat in character. ?I removed this in piecemeal with cold forcep polypectomy as well. There was minimal bleeding here.?Once this was completed, I continued to withdraw the scope and examine the remainder of the colonic mucosa.?Once the scope was withdrawn to the level of the rectum, great care was taken to examine portions of the rectal folds.? Finally, the scope was withdrawn and the patient was brought to the same-day surgery recovery unit as the anesthetic wore off. ?The findings and instructions were shared with the patient prior to discharge. [place] Bowel Prep [place] Bowel Prep Right Colon: 3 Left Colon: 3 Transverse Colon: 3 Total Score: 9
[2023-12-11 07:22] VITALS: BP 117/62; PULSE 68; RESP 16; TEMP 36.7; O2SAT 98
[2023-12-11] MEDS: Lactated Ringers 1,000 ML 80 ML IV (07:35)
--- NOTE | 2023-12-11 07:57 | W.ANESPRE ---
General Info Date of Service Date Performed: 12/11/23 Height: 5 ft 4.45 in Weight: 65.8 kg Body Mass Index (BMI): 24.5 Surgical Procedure: Operation Date: 12/11/23 08:20 Proposed Procedure Side Surgeon ashlee Arredondo MD Meds Allergies and Home Medications Allergies Allergy/AdvReac Type Severity Reaction Status Date / Time pencillins AdvReac Mild Other (See Uncoded 12/11/23 07:16 Comment) Home Medication ?Medication ?Instructions ?Recorded ondansetron 4 mg disintegrating 4 mg PO Q8H PRN nausea and 11/24/22 tablet vomiting #30 tabs ibuprofen 600 mg tablet 600 mg PO TID PRN pain #90 tabs 02/08/23 triamterene 37.5 0.5 tab PO QAM #30 tabs 03/15/23 mg-hydrochlorothiazide 25 mg tablet bupropion HCl 150 mg 24 hr tablet, 150 mg PO DAILY #90 tabs 05/26/23 extended release bupropion HCl 300 mg 24 hr tablet, 300 mg PO DAILY #90 tabs 05/26/23 extended release cholecalciferol (vitamin D3) 125 125 mcg PO DAILY 11/30/23 mcg (5,000 unit) capsule Current Visit Medications: Current Medications Generic Name Dose Route Start Last Admin Trade Name Freq PRN Reason Stop Dose Admin Ringer's Solution 1,000 mls @ 80 mls/hr 12/11/23 06:00 12/11/23 07:35 IV 12/11/23 23:59 80 mls/hr INFUSION URI Administration IV Miscellaneous Supplies 1 each 12/11/23 06:00 Iv Access IV 12/11/23 23:59 DIRECTED URI Ondansetron HCl 4 mg 12/10/23 07:42 Ondansetron 4 Mg/2 Ml Vial IVP 01/09/24 07:41 Q4H PRN PRN Nausea / Vomiting Sodium Chloride 0 ml 12/11/23 06:00 Normal Saline Flush 10 Ml Syr IV 12/11/23 23:59 PRN PRN Sodium Chloride 0 ml 12/11/23 06:00 Normal Saline 10 Ml Vial IJ 12/11/23 23:59 DIRECTED PRN Sterile Water 0 ml 12/11/23 06:00 Water,Injection,Sterile 10 Ml Vial IJ 12/11/23 23:59 DIRECTED PRN PFSH Active Problems Active Problems: Problem Status Onset Code Encounter for screening colonoscopy Acute Z12.11 Obstructive sleep apnea Chronic G47.33 Hyperlipidemia Chronic E78.5 Major depressive disorder, recurrent Chronic F33.9 Generalized anxiety disorder Chronic F41.1 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 A.m. BX benign. Ultrasound unremarkable. No response to norethindrone. 09/2018 OCPs initiated Medical History Comments:: Pt. wants to note that she had an abx injection in her ear 12/05/23. Pt. reports vertigo 9 days ago Surgical History Surgical History S/P medial meniscus repair of right knee (02/08/23) History of tonsillectomy and adenoidectomy History of carpal tunnel surgery of right wrist (04/21/21) S/P colonoscopy (03/26/18) History of bilateral tubal ligation (~1999) Tobacco Smoking/Tobacco Use Status: Former Tobacco Use Passive smoking exposure: Yes Second hand exposure: Yes Alcohol Alcohol Intake: current Alcohol intake frequency: a few times a week Alcohol type: beer Substance Use Substance use: Never Substance use type: does not use Details: alcohol: t-3 Prental History History 3 Para 3 Hx # Term Pregnancies Multiple births Hx # Pregnancies Ectopic pregnancies AB induced Hx Number of Living Children 3 AB spontaneous Vital Signs and Lab Results Vital Signs Most Recent Vital Signs in EMR: Most Recent Vital Signs Temp Pulse Resp BP Pulse Ox 36.7 C 68 16 117/62 98 12/11/23 07:22 12/11/23 07:22 12/11/23 07:22 12/11/23 07:22 12/11/23 07:22 Lab Results Blood Type / Crossmatch: No Data to Display Complete Blood Count: No Data to Display Complete Metabolic Panel: No Data to Display Liver Function Panel: No Data to Display Coagulation Panel: No Data to Display Cardiac Panel: No Data to Display Arterial Blood Gas: No Data to Display Venous Blood Gas: No Data to Display Pancreas Panel: No Data to Display Thyroid Panel: No Data to Display Infectious Disease: No Data to Display Blood Cultures: No Data to Display Toxicology Panel: No Data to Display Anesthesia Assessment and Plan Anesthesia History Personal History: No History of Anesthesia Complications Family History: No Family History of Anesthesia Complications Exercise Tolerance Exercise Tolerance: Metabolic Equivalents>4 Pertinent Negatives Pertinent Negatives: No Symptoms of GERD, No Major Cardiovascular Symptoms or Complaints, No Major Pulmonary Symptoms or Complaints and No History of CVA/TIA Cardiac & Pulmonary Exam Cardiac Exam: Normal S1/S2 Heart Sounds Pulmonary Exam: Clear Bilateral Breath Sounds Implantable Cardiac Device Does patient have a Pacemaker or an ICD?: No Airway Exam Known Difficult Airway: No Mallampati Class: 1 Mouth Opening: Normal (> 3cm) Thyromental Distance: Greater than 3 cm Neck Range of Motion: Full ROM Neck Circumference: Normal Teeth Condition: Normal Dentition ASA Classification ASA Score: ASA 2 Emergency Case?: No NPO Status NPO Status: NPO Clears >2 hours, Solids >8 hours Anesthesia Plan Resuscitation Status: Full Code Anesthesia Technique: General Anesthesia Airway Planned: Natural Airway Monitors Used: Standard Monitors Preoperative Comments:: Recent vertigo history. Did discuss potential for exacerbation due to med. patient wishes to proceed.
[2023-12-11 07:59] VITALS: BMI 24.5
--- NOTE | 2023-12-11 08:28 | BOWEL_PTH ---
PATIENT: Annie Bush LOC: [facility] U#:[id number] AGE/SX: 63/F ROOM: RE12/11/[address]: David Arredondo MD : 1960 BED: DIS: 12/11/2023 SPEC #: [id number] RECD: 12/11/23 12:04 STATUS: TANISHA RE #: [id number] PAT: 12/11/23 08:[address]: David Arredondo DEPT: Surgical Specimen RECD BY: Sapna Snyder ENTERED: 12/11/23 12:04 SP TYPE: Bowel OTHR DR: Lashon Noguera, YAQUELIN Tissues: 1 - BIOPSY BOWEL 2 - BIOPSY BOWEL Procedures: GROSS AND MICRO LEVEL 4 Comments: [id number]
[2023-12-11 08:54] VITALS: BP 105/59; PULSE 60; RESP 16; TEMP 36.7; O2SAT 98
--- NOTE | 2023-12-11 09:03 | W.ANESPOSTOP ---
Postoperative Evaluation Date, Time and Location Date Performed: 12/11/23 Time Performed: 09:03 Patient Location: Day Surgery Unit Vital Signs Most Recent Imported Vital Signs: Most Recent Vital Signs Temp Pulse Resp BP Pulse Ox 36.7 C 60 16 105/59 L 98 12/11/23 08:54 12/11/23 08:54 12/11/23 08:54 12/11/23 08:54 12/11/23 08:54 Pain Score Most Recent Pain Score: Most Recent Pain Score Pain Level 0 12/11/23 08:54 Assessment Mental Status: Awake (Alert & Oriented to Patient Baseline) Airway and Respiratory Function: Patent airway with normal (patient baseline) respiratory exam Cardiovascular Function: Hemodynamically Stable Hydration Status: Adequately Hydrated Nausea & Vomiting: No Nausea or Vomiting Pain: Pt. Denies Any Pain Peripheral Nerve Block: Patient did not receive a nerve block Postoperative Comments:: Patient reporting redness and discomfort to left eye. Patient was scratching at eye as waking and did pull hand down to protect, however it appears might have a corneal abraision. I will reassess one more time prior to discharge.
[2023-12-11 09:24] VITALS: BP 100/83; PULSE 60; RESP 16; TEMP 36.7; O2SAT 100
== END 2023-12-11 09:44 | disposition home or self-care (01) ==
LOC: SUR 06:57
PROVIDERS: PCP Nurse Practitioner Family; Visit Provider Surgery
PROC: 0DJD8ZZ Inspection of Lower Intestinal Tract, Via Natural or Artificial Opening Endoscopic (ICD-10-PCS; CPT 45378; principal; 2023-12-11 08:15)
DX: Z12.11 Encounter for screening for malignant neoplasm of colon (principal); G47.33 Obstructive sleep apnea (adult) (pediatric); D12.4 Benign neoplasm of descending colon
CPT/HCPCS: 45380; 88305; J2704

== ENCOUNTER 2024-04-06 13:59 | Outpatient (CLI) | payer OTHER, SELFPAY ==
--- NOTE | 2024-04-06 14:20 | DI.RAD_ITS ---
Exam(s) XR CHEST 2V PA LATERAL EXAM: XR CHEST 2V PA LATERAL CLINICAL HISTORY: eval pna. TECHNIQUE: 2D digital imaging was performed. COMPARISON: No exams were available for comparison FINDINGS: 2 views: Heart size is normal. The mediastinum is not widened. Lungs are clear. No infiltrates nor pleural effusions. IMPRESSION: No acute pulmonary findings. DATA REPOSITORY: RADIATION DOSE DELIVERED:
--- NOTE | 2024-04-06 14:50 | DI.VRAD_ITS ---
PROCEDURE INFORMATION: Exam: XR Chest Exam date and time: 04/06/2024 2:17 PM Age: 63 years old Clinical indication: Cough; Patient HX: ? Pna TECHNIQUE: Imaging protocol: Radiologic exam of the chest. Views: 2 views. COMPARISON: MR CERVICAL SPINE WO 12/25/2020 3:25 PM FINDINGS: Lungs: There is hazy abnormal opacity in the infrahilar right lung. Other lung zones are clear. Pleural spaces: Unremarkable. No pleural effusion. No pneumothorax. Heart/Mediastinum: Cardiomediastinal silhouette is normal. Bones/joints: Unremarkable. IMPRESSION: Hazy infiltrate in the medial right lung base, possibly early pneumonia. Dictated and Authenticated by: Yandel Chanel MD. Ordering:NELSON Granda MD
== END 2024-04-06 14:19 ==
LOC: DI 13:59
PROVIDERS: PCP Nurse Practitioner Family; Visit Provider Nurse Practitioner Family
DX: R05.9 Cough, unspecified (principal)
CPT/HCPCS: 71046

== ENCOUNTER 2024-08-16 00:43 | Outpatient (CLI) | payer OTHER, SELFPAY ==
--- NOTE | 2024-08-16 06:30 | DI.MAMMO_ITS ---
Exam(s) MAMMO SCREENING EXAM: MAMMO SCREENING CLINICAL HISTORY: screening,z12.39. TECHNIQUE: Bilateral full field digital CC and MLO mammographic images were obtained with 3D tomosyn thesis and utilizing computer aided detection (CAD). COMPARISON: Prior mammograms were reviewed. FINDINGS: There has been no significant change in the appearance and distribution of the fibroglandular tissue. There are no new spiculated masses nor malignant appearing microcalcification groups. There is no significant architectural distortion nor skin thickening-retraction. IMPRESSION: No radiographic evidence of malignancy. BI-RADS Category 1 - Negative Breast Density - Category C - Heterogeneously dense Breast density Category C or D implies that the patient has dense breast tissue. Dense breast tissue can make it harder to find cancer on a mammogram. Dense breast tissue is also associated with an incr eased risk of breast cancer. This information about the result of the mammogram report was provided to the patient to raise their awareness. Use this report when you speak with the patient about their risks for breast cancer, which includes their family history. At that time, you may recommend additional screening tests (Ultrasoun d or MRI) as these tests may add significant information. A negative radiographic report should not delay biopsy if a dominant or clinically suspicious mass is present. Up to ten percent of cancers are not identified on mammography. A negative report may reinforce clinical impression. Adenosis and dense breasts may obscure an underlying neoplasm. False positive reports average 6 to 10%. Patient will receive a letter notifying them of these results.
--- NOTE | 2024-08-16 06:30 | DI.CT_ITS ---
Exam(s) CT CHEST WO EXAM: CT CHEST WO CLINICAL HISTORY: chronic cough,family h/o lung ca,z80.1,r05.3. TECHNIQUE: Multi planar reconstructions were performed. CONTRAST MATERIAL: None COMPARISON: CR,XR XR CHEST 2V PA LATERAL from 04/06/2024 FINDINGS: CHEST: LUNGS: There are no infiltrates nor pleural effusions. There is a small pleural based sessile nodule in the lateral aspect of the right lower lobe anterior basal segment measuring 4 x 2 mm. No associa bahman overlying rib destruction. No other significant focal lung findings. MEDIASTINUM: There is no obvious hilar nor mediastinal adenopathy. Partially visualized thyroid unrem arkable.No obvious axillary adenopathy CARDIAC: Heart size is normal. There is no pericardial effusion.Caliber of the thoracic aorta is wit hin normal limits. VISUALIZED UPPER ABDOMEN:No adrenal findings. OSSEOUS: No significant osseous lesions.No fractures.. IMPRESSION: 1. No infiltrates nor pleural effusions nor intrathoracic adenopathy 2. Small focus of noncalcified pleural thickening over the anterior basal segment of the right lower lobe measuring 4 x 2 mm, noncalcified. 3. Recommend follow-up CT scan in 6 months to ensure stability. RADIATION DOSE DELIVERED: 112.57mGy.cm Total DLP DATA REPOSITORY: All CT scans at this facility are submitted to the National Radiology Data Registry (NRDR) Dose Index Registry (DIR) with the [employer] ([employer]). RADIATION OPTIMIZATION: All CT scans at this facility use at least one of these dose optimization te chniques: automated exposure control; mA and/or kV adjustment per patient size (includes targeted exa ms where dose is matched to clinical indication); or iterative reconstruction.
== END 2024-08-16 01:03 ==
LOC: DI 00:43
PROVIDERS: PCP Nurse Practitioner Family; Visit Provider Nurse Practitioner Family
DX: Z12.31 Encounter for screening mammogram for malignant neoplasm of breast (principal); R05.3 Chronic cough; Z80.1 Family history of malignant neoplasm of trachea, bronchus and lung; R92.333 Mammographic heterogeneous density, bilateral breasts
CPT/HCPCS: 71250; 77063; 77067